=== PATIENT | female | born 1965 | race Caucasian/White ===

== ENCOUNTER → 2016-07-21 | Outpatient (CLI) | payer BC | LOC: RAD 15:18 | PROVIDERS: ATTEND Family Medicine | DX: J45.909 Unspecified asthma, uncomplicated (principal) | CPT/HCPCS: 71020 ==

== ENCOUNTER → 2016-08-26 | Outpatient (CLI) | payer BC ==
[2016-08-26 11:12] LABS: ABSOLUTE EOSINOPHILS # (AUTO) 0.2 10^3/uL (0.0-0.6); ABSOLUTE LYMPHOCYTES (AUTO) 1.8 10^3/uL (0.5-4.7); ABSOLUTE MONOCYTES (AUTO) 0.3 10^3/uL (0.1-1.4); ABSOLUTE NEUT (AUTO) 5.1 10^3/uL (1.7-8.2); BASOPHILS % (AUTO) 0.4 % (0-2); EOSINOPHILS % (AUTO) 2.8 % (0-6); HEMATOCRIT 40.7 % (36.0-47.0); HEMOGLOBIN 13.9 g/dL (12.0-15.5); LYMPHOCYTES % (AUTO) 23.9 % (13-45); MEAN CORPUSCULAR HEMOGLOBIN 29.9 pg (27.0-33.4); MEAN CORPUSCULAR HGB CONC 34.3 g/dL (32.0-36.0); MEAN CORPUSCULAR VOLUME 87 fl (80-97); MONOCYTES % (AUTO) 4.1 % (3-13); RED BLOOD COUNT 4.67 10^6/uL (3.72-5.28); RED CELL DISTRIBUTION WIDTH 13.3 % (11.5-14.0); SEGMENTED NEUTROPHILS % (AUTO) 68.8 % (42-78); WHITE BLOOD COUNT 7.4 10^3/uL (4.0-10.5)
== END ==
LOC: OD 09:35
PROVIDERS: ATTEND Internal Medicine Pulmonary Disease
DX: J45.41 Moderate persistent asthma with (acute) exacerbation (principal)
CPT/HCPCS: 36415; 82785; 85025

== ENCOUNTER → 2017-01-21 | Outpatient (CLI) | payer BC ==
--- NOTE | 2017-01-21 09:46 | RADIOLOGY REPORT (SQ) ---
EXAM DESCRIPTION: CHEST PA/LATERAL COMPLETED DATE/TIME: 01/21/2017 9:15 am REASON FOR STUDY: PNEUMONIA; CHEST CONGESTION; WHEEZING COMPARISON: Two-view chest 07/21/2016 EXAM PARAMETERS: NUMBER OF VIEWS: two views TECHNIQUE: Digital Frontal and Lateral radiographic views of the chest acquired. RADIATION DOSE: NA LIMITATIONS: none FINDINGS: LUNGS AND PLEURA: No opacities, masses or pneumothorax. No pleural effusion. MEDIASTINUM AND HILAR STRUCTURES: No masses or contour abnormalities. HEART AND VASCULAR STRUCTURES: Heart normal size. No evidence for failure. BONES: No acute findings. HARDWARE: Lower cervical fusion OTHER: No other significant finding. IMPRESSION: NO SIGNIFICANT RADIOGRAPHIC FINDING IN THE CHEST. TECHNICAL DOCUMENTATION: JOB ID: [id number] [employer]- All Rights Reserved
== END ==
LOC: OD 07:40
PROVIDERS: ATTEND Student in an Organized Health Care Education/Training Program
DX: J18.9 Pneumonia, unspecified organism (principal)
CPT/HCPCS: 71020

== ENCOUNTER 2017-10-30 16:40 | Emergency (ER) | payer OTHER, BC ==
[2017-10-30] MEDS ORDERED: ASPIRIN 81 MG TABLET, CHEWABLE PO ONE (17:16)
[2017-10-30] MEDS ORDERED: METOCLOPRAMIDE HCL ORAL SOLN 10 MG/10 ML UDCUP PO ONE (17:16)
[2017-10-30] MEDS ORDERED: LIDOCAINE 2% VISCOUS SOLN 20 ML UDCUP PO ONE (17:16)
[2017-10-30] MEDS ORDERED: MAG HYDROX/AL HYDROX/SIMETH SUSP 30 ML UDCUP PO ONE (17:16)
--- NOTE | 2017-10-30 17:18 | ER Document Report ---
ED Medical Screen (RME) - General Chief Complaint: Abdominal Pain Stated Complaint: ABDOMINAL PAIN Time Seen by Provider: 10/30/17 17:09 Notes: 52-year-old female presents emergency department complaining of sharp burning epigastric pain that radiates around to her back and bilateral flanks this been going on for the past 1-2 days and is worsened with food. Admits nausea, denies vomiting or diarrhea. Admits fever earlier this morning but states it has since resolved. Denies any history of biliary pathology. TRAVEL OUTSIDE OF THE [place] IN LAST 30 DAYS: No - Related Data Allergies/Adverse Reactions: oxycodone Allergy (Verified 10/30/17 17:14) Past Medical History - General Information source: Patient - Social History Cigarette use (# per day): No Chew tobacco use (# tins/day): No Frequency of alcohol use: Social Drug Abuse: None Review of Systems - Review of Systems Constitutional: See HPI, Fever EENT: No symptoms reported Cardiovascular: No symptoms reported Gastrointestinal: See HPI, Abdominal pain, Nausea. denies: Diarrhea, Vomiting Physical Exam - Vital signs Vitals: Temp Pulse Resp BP Pulse Ox 98.4 F 96 20 147/79 H 98 10/30/17 16:54 10/30/17 16:54 10/30/17 16:54 10/30/17 16:54 10/30/17 16:54 Interpretation: Hypertensive - Notes Notes: General-appears uncomfortable HEENT-normocephalic atraumatic Respiratory-no respiratory distress Abdomen -epigastric tenderness to palpation with small amount of guarding Course - Vital Signs Vital signs: Temp Pulse Resp BP Pulse Ox 98.4 F 96 20 147/79 H 98 10/30/17 16:54 10/30/17 16:54 10/30/17 16:54 10/30/17 16:54 10/30/17 16:54
--- NOTE | 2017-10-30 18:15 | RADIOLOGY REPORT (SQ) ---
EXAM DESCRIPTION: CHEST SINGLE VIEW COMPLETED DATE/TIME: 10/30/2017 6:04 pm REASON FOR STUDY: epigastric abd pain, radiating to back COMPARISON: 2017. NUMBER OF VIEWS: One view. TECHNIQUE: Single frontal radiographic view of the chest acquired. LIMITATIONS: None. FINDINGS: LUNGS AND PLEURA: No opacities, masses or pneumothorax. No pleural effusion. MEDIASTINUM AND HILAR STRUCTURES: No masses. Contour normal. HEART AND VASCULAR STRUCTURES: Heart normal in size. Normal vasculature. BONES: No acute findings. HARDWARE: None in the chest. OTHER: No other significant finding. IMPRESSION: NO SIGNIFICANT RADIOGRAPHIC FINDING IN THE CHEST. TECHNICAL DOCUMENTATION: JOB ID: [id number] [employer]- All Rights Reserved Reading location - IP/workstation name: [email or web address]
[2017-10-30 18:17] LABS: ABSOLUTE BASOPHILS # (AUTO) 0.1 10^3/uL (0.0-0.2); ABSOLUTE EOSINOPHILS # (AUTO) 0.1 10^3/uL (0.0-0.6); ABSOLUTE LYMPHOCYTES (AUTO) 1.2 10^3/uL (0.5-4.7); ABSOLUTE MONOCYTES (AUTO) 1.2 10^3/uL (0.1-1.4); ABSOLUTE NEUT (AUTO) 12.5 10^3/uL (1.7-8.2); BASOPHILS % (AUTO) 0.4 % (0-2); EOSINOPHILS % (AUTO) 0.4 % (0-6); HEMATOCRIT 45.1 % (36.0-47.0); HEMOGLOBIN 15.3 g/dL (12.0-15.5); LYMPHOCYTES % (AUTO) 7.7 % (13-45); MEAN CORPUSCULAR HEMOGLOBIN 29.8 pg (27.0-33.4); MEAN CORPUSCULAR HGB CONC 33.9 g/dL (32.0-36.0); MEAN CORPUSCULAR VOLUME 88 fl (80-97); MONOCYTES % (AUTO) 8.1 % (3-13); PLATELET COUNT 314 10^3/uL (150-450); RED BLOOD COUNT 5.13 10^6/uL (3.72-5.28); RED CELL DISTRIBUTION WIDTH 13.7 % (11.5-14.0); SEGMENTED NEUTROPHILS % (AUTO) 83.4 % (42-78); TOTAL CELLS COUNTED % (AUTO) 100 %
[2017-10-30 18:33] LABS: ALANINE AMINOTRANSFERASE 380 U/L (9-52); ALBUMIN 4.5 g/dL (3.5-5.0); ALKALINE PHOSPHATASE 152 U/L (38-126); ANION GAP 16 (5-19); ASPARTATE AMINO TRANSFERASE 284 U/L (14-36); BILIRUBIN,DIRECT 4.2 mg/dL (0.0-0.4); BILIRUBIN,TOTAL 6.1 mg/dL (0.2-1.3); BLOOD UREA NITROGEN 10 mg/dL (7-20); CALCIUM 10.5 mg/dL (8.4-10.2); CARBON DIOXIDE 25 mmol/L (22-30); CHLORIDE 99 mmol/L (98-107); CREATINE KINASE 35 U/L (30-135); GLUCOSE 130 mg/dL (75-110); LIPASE 259.4 U/L (23-300); POTASSIUM 4.5 mmol/L (3.6-5.0); SODIUM 139.9 mmol/L (137-145); TOTAL PROTEIN 7.6 g/dL (6.3-8.2)
[2017-10-30 18:46] LABS: CREATINE KINASE MB 0.28 ng/mL (<4.55)
[2017-10-30 18:51] LABS: TROPONIN I < 0.012 ng/mL
[2017-10-30] MEDS ORDERED: NORMAL SALINE 1000 ML 1,000 ML IV ONE (21:00)
--- NOTE | 2017-10-30 21:00 | ER Document Report ---
ED General - General Chief Complaint: Abdominal Pain Stated Complaint: ABDOMINAL PAIN Time Seen by Provider: 10/30/17 17:09 Notes: Patient is a 52-year-old female without chronic medical problems who presents with 3 days of right upper quadrant and epigastric abdominal pain. The patient reports that it is a dull, aching, constant pain that is worsened by any attempt to eating. Nothing improves her symptoms. She states that she often feels very full and bloated. She notes associated nausea but no vomiting. She continues to have regular bowel movements, no diarrhea. She has not had any fever or constitutional symptoms. She denies any history of similar symptoms in the past. She denies any regular use of alcohol stating that she maybe has 1 -2 alcoholic beverages per month at most, denies any use of Tylenol although does note that she has been taking [place] that was prescribed by her doctor. She is clear to state however though she is not even taking it at the frequency that is prescribed. She denies any history of abdominal surgeries. She has not seen a primary care doctor regarding today's concerns. TRAVEL OUTSIDE OF THE [place] IN LAST 30 DAYS: No - Related Data Allergies/Adverse Reactions: oxycodone Allergy (Verified 10/30/17 17:14) Past Medical History - General Information source: Patient - Social History Smoking Status: Never Smoker Cigarette use (# per day): No Chew tobacco use (# tins/day): No Frequency of alcohol use: Social Drug Abuse: None Lives with: Family Family History: Reviewed & Not Pertinent Patient has suicidal ideation: No Patient has homicidal ideation: No Pulmonary Medical History: Reports: Hx Asthma Renal/ Medical History: Denies: Hx Peritoneal Dialysis Past Surgical History: Reports: Hx Orthopedic Surgery - right foot Review of Systems - Review of Systems Notes: Constitutional: Negative for fever. HENT: Negative for sore throat. Eyes: Negative for visual changes. Cardiovascular: Negative for chest pain. Respiratory: Negative for shortness of breath. Gastrointestinal: Positive for abdominal pain and nausea Genitourinary: Negative for dysuria. Musculoskeletal: Negative for back pain. Skin: Negative for rash. Neurological: Negative for headaches, weakness or numbness. 10 point ROS negative except as marked above and in HPI. Physical Exam - Vital signs Vitals: Temp Pulse Resp BP Pulse Ox 98.4 F 96 20 147/79 H 98 10/30/17 16:54 10/30/17 16:54 10/30/17 16:54 10/30/17 16:54 10/30/17 16:54 Interpretation: Hypertensive Notes: PHYSICAL EXAMINATION: GENERAL: Well-appearing, well-nourished and in no acute distress. HEAD: Atraumatic, normocephalic. EYES: Pupils equal round and reactive to light, extraocular movements intact, sclera anicteric, conjunctiva are normal. ENT: nares patent, oropharynx clear without exudates. Moist mucous membranes. NECK: Normal range of motion, supple without lymphadenopathy LUNGS: Breath sounds clear to auscultation bilaterally and equal. No wheezes rales or rhonchi. HEART: Regular rate and rhythm without murmurs ABDOMEN: Soft, focal tenderness to the right upper quadrant and epigastrium but no other localized areas of tenderness, normoactive bowel sounds. No guarding, no rebound. No masses appreciated. EXTREMITIES: Normal range of motion, no pitting or edema. No cyanosis. NEUROLOGICAL: No focal neurological deficits. Moves all extremities spontaneously and on command. PSYCH: Normal mood, normal affect. SKIN: Warm, Dry, normal turgor, mild icterus Course - Re-evaluation Re-evalutation: 10/30/17 20:59 Presentation of 3 days of progressively worsening upper abdominal pain found to have a profound transaminitis with associated hyperbilirubinemia on laboratories consistent with likely choledocholithiasis. Ultrasound does show gallbladder distention as well as stones. On abdominal examination the patient is a focal right upper quadrant and epigastric abdominal tenderness but no areas of rebound or guarding. Her vitals are within acceptable limits. We do not have the capacity to do ERCP at this hospital and she will require transfer to [facility] for this procedure. 10/30/17 22:03 Right upper quadrant ultrasound does not show any evidence of gallstones or gallbladder wall thickening. Normal common bile duct caliber. This goes strongly against a diagnosis of choledocholithiasis, a biliary stricture would still be in the differential although again this is unusual the context of normal common bile duct caliber. The patient denies any alcohol use, any risky sexual practices, any history of IV drug use, any history of hepatitis. She likewise denies any acetaminophen use. I do not have any good expansion for why she has such profound transaminitis with associated hyperbilirubinemia with associated upper abdominal pain. I have therefore discussed this case with Dr. Bonds at [facility] who has accepted the patient for transfer for GI consultation and consideration of an ERCP. 10/31/17 00:37 Continue to weigh transport. Patient was having increasing epigastric and right upper quadrant abdominal pain is now requesting pain medication. - Vital Signs Vital signs: Temp Pulse Resp BP Pulse Ox 99.0 F 96 22 H 134/75 H 98 10/30/17 23:31 10/30/17 16:54 10/30/17 23:31 10/30/17 23:31 10/30/17 23:31 - Laboratory Result Diagrams: 10/30/17 17:50 10/30/17 17:50 Laboratory results interpreted by me: 10/30/17 10/30/17 10/30/17 17:50 17:50 17:50 WBC 15.0 H Seg Neutrophils % 83.4 H Lymphocytes % 7.7 L Absolute Neutrophils 12.5 H Glucose 130 H Calcium 10.5 H Total Bilirubin 6.1 H Direct Bilirubin 4.2 H AST 284 H ALT 380 H Alkaline Phosphatase 152 H Acetaminophen < 10 L - Diagnostic Test Radiology reviewed: Reports reviewed Discharge - Discharge Clinical Impression: Acute hepatitis Liver failure, acute Qualifiers: Hepatic coma status: without hepatic coma Qualified Code(s): K72.00 - Acute and subacute hepatic failure without coma Condition: Fair Disposition: [facility] [place] Referrals: JEFFERY BEAL DO [Primary Care Provider] - Follow up as needed
--- NOTE | 2017-10-30 21:03 | RADIOLOGY REPORT (SQ) ---
EXAM DESCRIPTION: U/S ABDOMEN LIMITED W/O DOP COMPLETED DATE/TIME: 10/30/2017 8:50 pm REASON FOR STUDY: upper abdominal pain, abnormal lfts COMPARISON: None. TECHNIQUE: Dynamic and static grayscale images acquired of the abdomen and recorded on PACS. Onuro dionte selected color Doppler and spectral images recorded. LIMITATIONS: None. FINDINGS: PANCREAS: No masses. No peripancreatic edema or fluid collections. LIVER: Echotexture is coarse with increased echogenicity consistent with fatty infiltration. LIVER VASCULATURE: Normal directional flow of the main portal vein and hepatic veins. GALLBLADDER: No stones. Normal wall thickness. No pericholecystic fluid. ULTRASOUND-DETECTED VALLE'S SIGN: Negative. INTRAHEPATIC DUCTS AND COMMON DUCT: CBD and intrahepatic ducts normal caliber. No filling defects. INFERIOR VENA CAVA: Normal flow. AORTA: No aneurysm. RIGHT KIDNEY: Normal size. Normal echogenicity. No solid or suspicious masses. No hydronephrosis. No calcifications. PERITONEAL AND RIGHT PLEURAL SPACE: No ascites or effusions. OTHER: No other significant finding. IMPRESSION: FATTY INFILTRATION OF THE LIVER. OTHERWISE NORMAL RIGHT UPPER QUADRANT ULTRASOUND. TECHNICAL DOCUMENTATION: JOB ID: [id number] [employer]- All Rights Reserved Reading location - IP/workstation name: [email or web address]
[2017-10-30 22:25] LABS: ACETAMINOPHEN < 10 ug/mL (10-30)
[2017-10-30] MEDS ORDERED: MORPHINE SULFATE 10 MG/ML INJ IV PRN (23:23)
[2017-10-30] MEDS ORDERED: ONDANSETRON HCL INJ/PF 4 MG/2 ML SDV IV ONE (23:23)
[2017-10-31] MEDS ORDERED: HYDROMORPHONE HCL INJ/PF 2 MG/ML AMPULE IV PRN (00:02)
[2017-10-31 01:20] VITALS: BP 118/72
--- NOTE | 2017-10-31 09:26 | EKG REPORT ---
SEVERITY:- ABNORMAL ECG - SINUS RHYTHM LEFT VENTRICULAR HYPERTROPHY : Confirmed by: Femi Sheriff 31-Oct-2017 09:25:58
[2017-11-01 13:38] LABS: HEPATITIS A AB IGM Negative (Negative); HEPATITIS B CORE AB IGM Negative (Negative); HEPATITS B SURFACE ANTIGEN Negative (Negative)
[2017-11-01 13:59] LABS: HEPATITIS C VIRUS ANTIBODY <0.1 s/co ratio (0.0-0.9)
== END 2017-10-31 01:15 | disposition short-term general hospital (02) ==
LOC: ER 16:40
DX: K72.00 Acute and subacute hepatic failure without coma (principal); R74.0 Nonspecific elevation of levels of transaminase and lactic acid dehydrogenase [LDH]; E80.6 Other disorders of bilirubin metabolism; R10.11 Right upper quadrant pain; R10.13 Epigastric pain; R11.0 Nausea; J45.909 Unspecified asthma, uncomplicated
CPT/HCPCS: 93005; 99285; 36415; 82553; 82550; 83690; 80307; 85025; 80053; 84484; 80074; 71045; 76705; 93010; J3490; J1170; J2405; J7030

== ENCOUNTER 2018-05-09 09:34 | Emergency (ER) | payer OTHER, BC ==
[2018-05-09] MEDS ORDERED: IPRATROPIUM/ALBUTEROL 0.5-2.5 MG/3 ML AMPUL NEB ONE (09:47)
[2018-05-09] MEDS ORDERED: METHYLPREDNISOLONE INJ 125 MG/2 ML SDV IV ONE (09:47)
[2018-05-09] MEDS ORDERED: NORMAL SALINE 1000 ML 1,000 ML IV PRN (09:49)
--- NOTE | 2018-05-09 09:51 | ER Document Report ---
ED Medical Screen (RME) - General Chief Complaint: Breathing Difficulty Stated Complaint: DIFFICULTY BREATHING Time Seen by Provider: 05/09/18 09:43 Notes: 52 years old female with history of asthma presents today with exacerbation of wheezing. Though she has been taking Ventolin, Symbicort, Singulair, prednisone 20 mg twice a day. No fever chills or other constitutional symptoms. On examination-diffuse bilaterally expiratory wheezing TRAVEL OUTSIDE OF THE [place] IN LAST 30 DAYS: No - Related Data Allergies/Adverse Reactions: oxycodone Allergy (Verified 05/09/18 09:34) Past Medical History - Social History Chew tobacco use (# tins/day): No Frequency of alcohol use: None Drug Abuse: None Pulmonary Medical History: Reports: Hx Asthma Renal/ Medical History: Denies: Hx Peritoneal Dialysis Past Surgical History: Reports: Hx Orthopedic Surgery - right foot Physical Exam - Vital signs Vitals: Temp Pulse Resp BP Pulse Ox 98.4 F 75 18 139/88 H 96 05/09/18 09:38 05/09/18 09:38 05/09/18 09:38 05/09/18 09:38 05/09/18 09:38 Course - Vital Signs Vital signs: Temp Pulse Resp BP Pulse Ox 98.4 F 75 18 139/88 H 96 05/09/18 09:38 05/09/18 09:38 05/09/18 09:38 05/09/18 09:38 05/09/18 09:38 Doctor's Discharge - Discharge Referrals: JEFFERY BEAL DO [Primary Care Provider] - Follow up as needed
--- NOTE | 2018-05-09 10:21 | ER Document Report ---
ED General - General Chief Complaint: Breathing Difficulty Stated Complaint: DIFFICULTY BREATHING Time Seen by Provider: 05/09/18 09:43 TRAVEL OUTSIDE OF THE [place] IN LAST 30 DAYS: No - HPI Notes: Patient is a 52-year-old female with a history of asthma and chronic joint pains of a flareup of her asthma over the last 4 days. Patient states that she has had a dry cough and associated wheezing. Patient states that she has had a history of asthma flareups in the past and states that this is the exact same as previous flareups. Pt states that most of her issues are with coughing fits , otherwise she feels well. She was evaluated by her primary care doctor 3 days ago and was placed on steroids as well as an antibiotic which she has been taking. She has been using her inhalers at home as well. She has no other concerns or complaints. She has been eating and drinking without any difficulties. She is urinating normally. Denies any prolonged immobilization, distance travel, recent surgery/trauma, personal cancer history, hormone use, smoking, or previous DVT/PE. Denies any headache, fever, URI, sore throat, chest pain, palpitations, syncope, shortness of breath, abdominal pain, nausea/ vomiting/diarrhea, urinary retention, dysuria, hematuria, or rash. - Related Data Allergies/Adverse Reactions: oxycodone Allergy (Verified 05/09/18 09:34) Past Medical History - Social History Smoking Status: Never Smoker Chew tobacco use (# tins/day): No Frequency of alcohol use: None Drug Abuse: None Family History: Reviewed & Not Pertinent Patient has suicidal ideation: No Patient has homicidal ideation: No Pulmonary Medical History: Reports: Hx Asthma Renal/ Medical History: Denies: Hx Peritoneal Dialysis Past Surgical History: Reports: Hx Orthopedic Surgery - right foot Review of Systems - Review of Systems -: Yes All other systems reviewed and negative Physical Exam - Vital signs Vitals: Temp Pulse Resp BP Pulse Ox 98.4 F 75 18 139/88 H 96 05/09/18 09:38 05/09/18 09:38 05/09/18 09:38 05/09/18 09:38 05/09/18 09:38 - Notes Notes: PHYSICAL EXAMINATION: GENERAL: Well-appearing, well-nourished and in no acute distress. A&Ox4. Answers questions appropriately. Speaking in full sentences. HEAD: Atraumatic, normocephalic. EYES: Pupils equal round and reactive to light, extraocular movements intact, sclera anicteric, conjunctiva are normal. ENT: Nares patent and without discharge. oropharynx clear without exudates. No tonsilar hypertrophy or erythema. Moist mucous membranes. No sinus tenderness. NECK: Normal range of motion, supple without lymphadenopathy. No rigidity/ meningismus. LUNGS: Scant expiratory wheezes noted. Dry harsh cough noted. No retractions. HEART: Regular rate and rhythm without murmurs, rubs, gallops. ABDOMEN: Soft, nontender, nondistended abdomen. No guarding, no rebound. No masses appreciated. Normal bowel sounds present. No CVA tenderness bilaterally. Musculoskeletal: FROM to passive/active. Strength 5+/5. Elizabet neg b/l. No LE asymmetry. Extremities: No cyanosis, clubbing, or edema b/l. Peripheral pulses 2+. Capillary refill less than 3 seconds. NEUROLOGICAL: Cranial nerves grossly intact. Normal speech, normal gait. Normal sensory, motor exams PSYCH: Normal mood, normal affect. SKIN: Warm, Dry, normal turgor, no rashes or lesions noted. Course - Re-evaluation Re-evalutation: 05/09/18 12:54 Patient is an afebrile, well-hydrated 52-year-old female who presents to the ED with acute asthma exacerbation vs URI. Vitals are acceptable without any significant tachycardia, tachypnea, or hypoxia. Pt has not had any episodes of hypoxemia while in the ED. PE is otherwise unremarkable. Patient is nontoxic- appearing and is tolerating p.o. without any difficulties. Pt is currently asymptomatic. EKG, D-dimer, and chest x-ray are all unremarkable for any acute pathology. Patient does not have any chest pain, dyspnea, or shortness of breath at this time. She was given duoneb, solumedrol, magnesium IV. Lungs are CTAB at this time. She has had asthma exacerbations like this in the past. Patient's presentation and symptomatology creates low suspicion for ACS, PE, pneumothorax, pericarditis, dissection, respiratory compromise, severe dehydration, sepsis, meningitis, or other systemic emergent condition at this time. Patient is aware that this condition can change from initial presentation and she needs to monitor symptoms closely and seek medical attention for any acute changes. Pt is feeling better and would like to go home. Recommend conservative measures for symptoms. Recheck with your PCM in 2 -3 days. Consider consult with pulmonology. Return to the ED with any worsening /concerning symptoms otherwise as reviewed in discharge. Patient is in agreement. - Vital Signs Vital signs: Temp Pulse Resp BP Pulse Ox 98.4 F 75 18 139/88 H 96 05/09/18 09:38 05/09/18 09:38 05/09/18 10:15 05/09/18 09:38 05/09/18 09:38 Discharge - Discharge Clinical Impression: Acute bronchitis Qualifiers: Bronchitis organism: unspecified organism Qualified Code(s): J20.9 - Acute bronchitis, unspecified Acute asthma exacerbation Qualifiers: Asthma severity: mild Asthma persistence: intermittent Qualified Code(s): J45.21 - Mild intermittent asthma with (acute) exacerbation Condition: Stable Disposition: HOME, SELF-CARE Additional Instructions: Maintain adequate fluid intake Take meds as directed tylenol/ibuprofen as needed over the counter cold medication as needed for symptoms Humidified air may help Wash your hands regularly Wear a mask when coughing F/u: with your PCM in 3-5 days for a recheck Return to the ED with any fever, worsening pain, chest pain, palpitations, syncope, worsening AUGUSTINE, neck pain/stiffness, shortness of breath, wheezing, drooling, trouble swallowing/breathing, abdominal pain, n/v/d, rash, or worsening/concerning symptoms otherwise. Prescriptions: Benzonatate [Tessalon Perle 100 mg Capsule] 100 mg PO Q8HP PRN #15 cap PRN Reason: Prednisone 20 mg PO ASDIR #18 tablet Forms: Elevated Blood Pressure Referrals: SALVADOR LOVE MD [ACTIVE STAFF] - Follow up as needed JEFFERY BEAL DO [Primary Care Provider] - 05/11/18
--- NOTE | 2018-05-09 11:00 | RADIOLOGY REPORT (SQ) ---
EXAM DESCRIPTION: CHEST SINGLE VIEW COMPLETED DATE/TIME: 05/09/2018 10:01 am REASON FOR STUDY: cough COMPARISON: 10/30/2017. EXAM PARAMETERS: NUMBER OF VIEWS: One view. TECHNIQUE: Single frontal radiographic view of the chest acquired. RADIATION DOSE: NA LIMITATIONS: None. FINDINGS: LUNGS AND PLEURA: No opacities, masses or pneumothorax. No pleural effusion. MEDIASTINUM AND HILAR STRUCTURES: No masses. Contour normal. HEART AND VASCULAR STRUCTURES: Heart normal in size. Normal vasculature. BONES: No acute findings. HARDWARE: None in the chest appeared hardware in the cervical spine. OTHER: No other significant finding. IMPRESSION: NO ACUTE RADIOGRAPHIC FINDING IN THE CHEST. TECHNICAL DOCUMENTATION: JOB ID: [id number] [employer]- All Rights Reserved Reading location - IP/workstation name: [email or web address]
[2018-05-09] MEDS: MAGNESIUM SULFATE/D5W 1 GM/100 ML RTUPB IV SCH ×2 (11:37→12:50)
[2018-05-09] MEDS: ALBUTEROL SULFATE 0.083% NEB 2.5 MG/3 ML AMPUL NEB SCH ×2 (11:43→12:54)
[2018-05-09] MEDS ORDERED: ALBUTEROL SULFATE 0.083% NEB 2.5 MG/3 ML AMPUL NEB ONE (12:54)
[2018-05-09] MEDS ORDERED: BENZONATATE 100 MG CAPSULE PO ONE (12:58)
[2018-05-09 13:56] VITALS: BP 123/60
--- NOTE | 2018-05-11 08:18 | EKG REPORT ---
SEVERITY:- ABNORMAL ECG - SINUS RHYTHM LEFT VENTRICULAR HYPERTROPHY : Confirmed by: Radha Del Real MD 11-May-2018 08:17:47
== END 2018-05-09 14:43 | disposition home or self-care (01) ==
LOC: ER 09:34
DX: J20.9 Acute bronchitis, unspecified (principal); J45.21 Mild intermittent asthma with (acute) exacerbation; R05 Cough; Z88.5 Allergy status to narcotic agent
CPT/HCPCS: 93005; 94640 ×2; 99285; 96361; 96375; 96365; 36415; 85379; 71045; 93010; J2930; J3475; J7030; J7620

== ENCOUNTER 2018-06-23 09:30 | Day surgery (SDC) | payer OTHER, BC ==
[2018-06-16 11:16] LABS: HEMATOCRIT 42.4 % (36.0-47.0); HEMOGLOBIN 14.8 g/dL (12.0-15.5); MEAN CORPUSCULAR HEMOGLOBIN 30.6 pg (27.0-33.4); MEAN CORPUSCULAR HGB CONC 34.9 g/dL (32.0-36.0); MEAN CORPUSCULAR VOLUME 88 fl (80-97); PLATELET COUNT 328 10^3/uL (150-450); RED BLOOD COUNT 4.84 10^6/uL (3.72-5.28); RED CELL DISTRIBUTION WIDTH 13.3 % (11.5-14.0); WHITE BLOOD COUNT 8.4 10^3/uL (4.0-10.5)
[2018-06-16 11:25] LABS: APPEARANCE,URINE CLOUDY; BILIRUBIN,URINE NEGATIVE (NEGATIVE); COLOR,URINE YELLOW; GLUCOSE, URINE >=500 mg/dL (NEGATIVE); KETONES,URINE NEGATIVE (NEGATIVE); LEUKOCYTE ESTERASE,URINE NEGATIVE (NEGATIVE); NITRITE,URINE NEGATIVE (NEGATIVE); PROTEIN,URINE NEGATIVE (NEGATIVE); URINE SPECIFIC GRAVITY 1.021; UROBILINOGEN,URINE NEGATIVE mg/dL (<2.0)
[2018-06-16 11:41] LABS: ANION GAP 9 (5-19); BLOOD UREA NITROGEN 15 mg/dL (7-20); CALCIUM 9.6 mg/dL (8.4-10.2); CARBON DIOXIDE 27 mmol/L (22-30); CHLORIDE 106 mmol/L (98-107); GLUCOSE 115 mg/dL (75-110); POTASSIUM 4.2 mmol/L (3.6-5.0); SODIUM 141.8 mmol/L (137-145)
--- NOTE | 2018-06-16 11:46 | EKG REPORT ---
SEVERITY:- NORMAL ECG - SINUS RHYTHM : Confirmed by: Femi Sheriff 16-Jun-2018 11:45:39
--- NOTE | 2018-06-16 13:07 | RADIOLOGY REPORT (SQ) ---
EXAM DESCRIPTION: CHEST PA/LATERAL COMPLETED DATE/TIME: 06/16/2018 10:41 am REASON FOR STUDY: PRE-OP COMPARISON: None. EXAM PARAMETERS: NUMBER OF VIEWS: two views TECHNIQUE: Digital Frontal and Lateral radiographic views of the chest acquired. RADIATION DOSE: NA LIMITATIONS: none FINDINGS: LUNGS AND PLEURA: No opacities, masses or pneumothorax. No pleural effusion. MEDIASTINUM AND HILAR STRUCTURES: No masses or contour abnormalities. HEART AND VASCULAR STRUCTURES: Heart normal size. No evidence for failure. BONES: No acute findings. HARDWARE: None in the chest. OTHER: No other significant finding. IMPRESSION: NO SIGNIFICANT RADIOGRAPHIC FINDING IN THE CHEST. TECHNICAL DOCUMENTATION: JOB ID: [id number] [employer]- All Rights Reserved Reading location - IP/workstation name: [email or web address]
[~2018-06-23 09:30] MED LIST: CEFAZOLIN 2 GM/D5W RTU 2 GM/50 ML RTUPB IV ONE; CEFAZOLIN 2 GM/D5W RTU 2 GM/50 ML RTUPB IV PRN; LACTATED RINGERS 1000 ML IV PRN; LIDOCAINE 0.5% INJ-PF (5 MG/ML) 50 ML SDV SUBCUT PRN
[2018-06-23] MEDS ORDERED: PROPOFOL INJ 200 MG/20 ML VIAL IV ONE (10:31)
[2018-06-23] MEDS ORDERED: MIDAZOLAM 2 MG/2 ML INJ ONE (10:31)
[2018-06-23] MEDS ORDERED: FENTANYL CITRATE INJ/PF 100 MCG/2 ML AMPUL ONE (10:31)
[2018-06-23] MEDS ORDERED: BUPIVACAINE HCL 0.5 % INJ/PF 30 ML SDV ONE (10:54)
[2018-06-23] MEDS ORDERED: HYDROMORPHONE HCL INJ/PF 2 MG/ML AMPULE ONE (12:23)
[2018-06-23] MEDS ORDERED: ACETAMINOPHEN 1,000 MG/100 ML RTUPB IV ONE (12:23)
[2018-06-23] MEDS ORDERED: ONDANSETRON HCL INJ/PF 4 MG/2 ML SDV ONE (12:23)
[2018-06-23] MEDS ORDERED: PROMETHAZINE HCL INJ 25 MG/1 ML VIAL ONE (12:49)
[2018-06-23] MEDS ORDERED: LIDOCAINE 1%/EPINEPHRINE INJ 20 ML VIAL ONE (12:50)
[2018-06-23] MEDS ORDERED: MEPERIDINE HCL/PF INJ 25 MG/1 ML DISP.SYRIN IV PRN (13:23)
[2018-06-23] MEDS ORDERED: MORPHINE SULFATE 10 MG/ML INJ IV PRN (13:23)
[2018-06-23] MEDS ORDERED: FENTANYL CITRATE INJ/PF 100 MCG/2 ML AMPUL IV PRN ×3 (13:23)
[2018-06-23] MEDS ORDERED: PROMETHAZINE HCL INJ 25 MG/1 ML VIAL IV PRN ×2 (13:23)
[2018-06-23] MEDS ORDERED: DIPHENHYDRAMINE HCL 50 MG/ML VIAL IV PRN (13:23)
[2018-06-23] MEDS ORDERED: DEXAMETHASONE SOD PHOSPHATE INJ 4 MG/1 ML VIAL ONE (13:32)
[2018-06-23] MEDS ORDERED: KETOROLAC TROMETHAMINE 60 MG/2 ML SDV ONE (13:32)
--- NOTE | 2018-06-23 14:07 | Operative Report ---
Operative Report DATE OF SURGERY: 06/23/18 PREOPERATIVE DIAGNOSIS: Right knee medial plica and chondromalacia OPERATION: Right knee medial plica excision and chondroplasty of patella and lateral tibial plateau SURGEON: MIC CH ANESTHESIA: GA TISSUE REMOVED OR ALTERED: None COMPLICATIONS: None ESTIMATED BLOOD LOSS: Less than 20mL INTRAOPERATIVE FINDINGS: As above PROCEDURE: Patient was brought to the operating room and successfully induced and intubated in a the supine position. Once the tube was secured the right lower extremity thigh tourniquet was applied and the left lower extremity was prepped and draped in a normal surgical fashion. Timeout was done identifying the left knee has a correct site. The extremity was held elevated for a couple minutes and then tourniquet was inflated at 300 mmHg 0.5% of Marcaine was injected into the anticipated portal sites. 11 blade was used to establish the anterolateral portal. Scope was introduced and the capsule was distended with sterile saline solution. Under direct visualization the anteromedial portal sites was established first by applying a spinal needle and then established with the 11 blade. Probe was introduced and a diagnostic scope was done. Diagnostic arthroscopy showed the patient did have a little plica and as well as some grade II chondromalacia of the medial facet of the patella with just some grade 1 and 2 fissuring of the trochlea. Lateral medial meniscus were intact ACL PCL were intact. Patient had some grade 2-3 changes focally on the lateral tibial plateau. I first proceeded to to resection of the plica and part of the fat pad that was involved in the area. I was able then to use a shaver to then do with abrasive chondroplasty to debride the loose cartilage on the patella and trochlea. I then placed the leg in a figure 4 and that the same abrasion chondroplasty of the lateral tibial plateau. I then then proceeded to make sure that the medial plica was was it was thought and excised and placed in the range of motion showing no impingement or tissue over the medial femoral condyle. Also satisfied with excision of the plica and my abrasion chondroplasty then I proceeded to remove the fluidfrom the knee and closed multiple sites with 3-0 nylon. Xeroform 4 x 4 dressing was applied followed by' s Sof-Rol and an Alejandro bandage. Tourniquet was let down at 70 minutes and drapes were removed and the patient was extubated and sent to PACU in stable condition
[2018-06-23] MEDS ORDERED: HYDROCODONE/ACETAMINOPHEN 5-325 MG TABLET PO PRN (14:10)
--- NOTE | 2018-06-23 14:10 | Discharge Summary ---
Discharge Summary (SDC) - Discharge Final Diagnosis: Right knee arthroscopy with medial plica excision and chondroplasty Date of Surgery: 06/23/18 Discharge Date: 06/23/18 Condition: Good Treatment or Instructions: Patient instructed to follow up in 10-14 days. Patient instructed to keep dressing dry clean and intact for 4 days and then allowed to remove. At that point patient can shower and apply Band-Aids as needed. Patient can weight-bear as tolerated and do range of motion exercises as tolerated. Crutches for support and safety. Can wean crutches once stable on his feet. Patient instructed to call the office if patient develops fevers chills redness and drainage from the surgical sites. Prescriptions: Hydrocodone/Acetaminophen [[place] 5-325 mg Tablet] 1 tab PO Q6HP PRN #14 tablet PRN Reason: Referrals: JEFFERY BEAL DO [Primary Care Provider] - Discharge Diet: As Tolerated Respiratory Treatments at Home: Deep Breathing/Coughing Discharge Activity: No Driving, Keep Legs Elevated, No Lifting/Push/Pulling, Slowly Increase Activity, Walk Frequently Home Care Assistance: None Needed Report the Following to Your Physician Immediately: Shortness of Breath, Nausea , Vomiting, Increase in Pain, Fever over 101 Degrees, Unusual Bleeding, Redness , Swelling, Warmth, Increased Soreness, Drainage-Yellow, Drainage-Cary, Drainage -Green, Drainage-Foul Smelling
[2018-06-23] MEDS ORDERED: HYDROCODONE/ACETAMINOPHEN 5-325 MG TABLET ONE (14:33)
[2018-06-23 18:31] VITALS: BP 122/89
== END 2018-06-23 15:22 | disposition home or self-care (01) ==
LOC: OROUT 09:30
PROVIDERS: ATTEND Orthopaedic Surgery
DX: M67.51 Plica syndrome, right knee (principal); M22.41 Chondromalacia patellae, right knee; M23.91 Unspecified internal derangement of right knee; J45.909 Unspecified asthma, uncomplicated; Z88.5 Allergy status to narcotic agent; Z79.51 Long term (current) use of inhaled steroids; Z79.899 Other long term (current) drug therapy
CPT/HCPCS: 93005; 36415; 85027; 81025; 80048; 81001; 71046; 93010; 29875; J2250; J3490; J1100; J1885; J3010; J2405; J2704; J0690; J0131; 1400; J1170; J2550

== ENCOUNTER → 2018-07-28 | Outpatient (CLI) | payer OTHER ==
--- NOTE | 2018-07-28 08:30 | WOMENS IMAGING REPORT ---
EXAM DESCRIPTION: 3D SCREENING MAMMO BILAT COMPLETED DATE/TIME: 07/28/2018 7:38 am REASON FOR STUDY: ROUTINE BILATERAL SCREENING;Z12.31 Z12.31 ENCNTR SCREEN MAMMOGRAM FOR MALIGNANT N EOPLASM OF ALEXIA COMPARISON: 05/14/2017 and 05/08/2016. TECHNIQUE: Standard craniocaudal and mediolateral oblique views of each breast recorded using digita l acquisition and breast tomosynthesis. LIMITATIONS: None. FINDINGS: No masses, calcifications or architectural distortion. No areas of suspicion. Read with the assistance of CAD. .[facility] - R2 [employer] Version 1.3 .[facility] Imaging - R2 Cenova Version 1.3 .[facility] - R2 Cenova Version 2.4 .[facility] [place] - R2 Cenova Version 2.4 .[facility] - R2 [employer] Production Team Member Version 9.2 IMPRESSION: NORMAL MAMMOGRAM. BIRADS 1. BREAST DENSITY: c. The breasts are heterogeneously dense, which may obscure small masses. BIRAD: 1 NEGATIVE RECOMMENDATION: ROUTINE SCREENING COMMENT: The patient has been notified of the results by letter per SA requirements. Additional no tification policies are in place for contacting patient with suspicious or incomplete findings. Quality ID #[id number]: The [employer] recommends an annual screening mammogram for women aged 40 years or over. This facility utilizes a reminder system to ensure that all patients receive reminder letters, and/or direct phone calls for appointments. This includes reminders for routine scr eening mammograms, diagnostic mammograms, or other Breast Imaging Interventions when appropriate. Th is patient will be placed in the appropriate reminder system. The [employer] (ACR) has developed recommendations for screening MRI of the breast s in certain patient populations, to be used in conjunction with mammography. Breast MRI surveillanc e may be appropriate for women with more than 20% lifetime risk of developing breast cancer as deter mined by genetic testing, significant family history of the disease, or history of mantle radiation f or Hodgkins Disease. ACR Practice Guidelines 2008. DBT Technology DBT is a type of tomographic mammography. With conventional mammography, overlapping breast tissue ma y make lesions difficult to detect, even with good compression. DBT uses an x-ray tube that rotates a round the breast, taking images at different angles. These images are then combined to create thin sl ices of the breast that the radiologist can view as a 3D reconstruction. The [employer] unit can perform full-field digital mammograms (2D imaging); or DBT (3D imaging); or both, in a combination mode that quickly performs both the mammogram and the tomosynthesis scan while the breast is still compressed. PQRS 6045F: Fluoroscopic imaging is not utilized for breast tomosynthesis. TECHNICAL DOCUMENTATION: FINDING NUMBER: (1) ASSESSMENT: (1) JOB ID: [id number] [employer]- All Rights Reserved Reading location - IP/workstation name: [email or web address]
== END ==
LOC: RAD 07:22
PROVIDERS: ATTEND Physician Assistant Medical
DX: Z12.31 Encounter for screening mammogram for malignant neoplasm of breast (principal)
CPT/HCPCS: 77063; 77067

== ENCOUNTER 2018-08-10 15:54 | Observation (INO) | payer OTHER, BC ==
[~2018-08-10 15:54] MED LIST changes: -CEFAZOLIN 2 GM/D5W RTU 2 GM/50 ML RTUPB IV ONE; -CEFAZOLIN 2 GM/D5W RTU 2 GM/50 ML RTUPB IV PRN; +DEXAMETHASONE SOD PHOSPHATE INJ 4 MG/1 ML VIAL ONE; +GLYCOPYRROLATE 1 MG/5 ML SYRINGE ONE; -LACTATED RINGERS 1000 ML IV PRN; -LIDOCAINE 0.5% INJ-PF (5 MG/ML) 50 ML SDV SUBCUT PRN; +LIDOCAINE 2% INJ-PF (20 MG/ML) 2 ML AMPUL ONE; +NEOSTIGMINE METHYLSULFATE 10 MG/10 ML VIAL ONE; +ONDANSETRON HCL INJ/PF 4 MG/2 ML SDV ONE; +ROCURONIUM BROMIDE INJ 50 MG/5 ML VIAL IV ONE; +SUCCINYLCHOLINE CHLORIDE INJ 200 MG/10 ML VIAL ONE
--- NOTE | 2018-08-10 16:23 | ER Document Report ---
ED Medical Screen (RME) - General Chief Complaint: Vaginal Bleeding Stated Complaint: VAGINAL BLEEDING/CRAMPING Time Seen by Provider: 08/10/18 16:10 Primary Care Provider: AMITA BECERRA PA [Primary Care Provider] - Follow up as needed Information source: Patient Notes: 52-year-old female presents emergency department with complaints of right lower quadrant pain and vaginal bleeding. Patient states that she has been having the vaginal bleeding for the last week. She has gone through 7 pads today. Has gone through 1 pad per hour. She had a mirena placed 2.5 years ago by a local SYSTEM ARCHITECT. Has not had any bleeding since having the mirena placed. Patient having associated abdominal pain. Sharp and stabbing sensation located in the RUQ, RLQ area. No radiation. No alleviating or exacerbating factors. Having associated nausea but denies vomiting, diarrhea, constipation. I have greeted and performed a rapid initial assessment of this patient. A comprehensive ED assessment and evaluation of the patient, analysis of test results and completion of the medical decision making process will be conducted by additional ED providers. PHYSICAL EXAMINATION: GENERAL: Well-appearing, well-nourished and in no acute distress. HEAD: Atraumatic, normocephalic. EYES: Pupils equal round extraocular movements intact, conjunctiva are normal. ENT: Nares patent NECK: Normal range of motion LUNGS: No respiratory distress Musculoskeletal: Normal range of motion NEUROLOGICAL: Normal speech, normal gait. PSYCH: Normal mood, normal affect. SKIN: Warm, Dry, normal turgor, no rashes or lesions noted. TRAVEL OUTSIDE OF THE [place] IN LAST 30 DAYS: No - Related Data Allergies/Adverse Reactions: oxycodone Allergy (Verified 06/16/18 09:51) Past Medical History - Past Medical History Cardiac Medical History: Denies: Hx Coronary Artery Disease, Hx Heart Attack, Hx Hypertension Pulmonary Medical History: Reports: Hx Asthma Denies: Hx Bronchitis, Hx COPD, Hx Pneumonia Neurological Medical History: Denies: Hx Cerebrovascular Accident, Hx Seizures Renal/ Medical History: Denies: Hx Peritoneal Dialysis Musculoskeltal Medical History: Denies Hx Arthritis Past Surgical History: Reports: Hx Orthopedic Surgery - right foot - Immunizations Hx Diphtheria, Pertussis, Tetanus Vaccination: Yes - NOT UP TO DATE History of Influenza Vaccine for 04/2017 - 09/2017 Season: Yes Influenza Administration Date for 04/2017 - 09/2017 Season: 04/11/17 Physical Exam - Vital signs Vitals: Temp Pulse Resp BP Pulse Ox 98.6 F 99 18 142/99 H 95 08/10/18 16:02 08/10/18 16:02 08/10/18 16:02 08/10/18 16:02 08/10/18 16:02 Course - Vital Signs Vital signs: Temp Pulse Resp BP Pulse Ox 98.6 F 99 18 142/99 H 95 08/10/18 16:02 08/10/18 16:02 08/10/18 16:02 08/10/18 16:02 08/10/18 16:02 Doctor's Discharge - Discharge Referrals: AMITA BECERRA PA [Primary Care Provider] - Follow up as needed
[2018-08-10 16:45] LABS: ABSOLUTE EOSINOPHILS # (AUTO) 0.1 10^3/uL (0.0-0.6); ABSOLUTE LYMPHOCYTES (AUTO) 1.9 10^3/uL (0.5-4.7); ABSOLUTE MONOCYTES (AUTO) 0.5 10^3/uL (0.1-1.4); BASOPHILS % (AUTO) 0.3 % (0-2); EOSINOPHILS % (AUTO) 1.2 % (0-6); HEMATOCRIT 44.2 % (36.0-47.0); HEMOGLOBIN 15.7 g/dL (12.0-15.5); LYMPHOCYTES % (AUTO) 19.7 % (13-45); MEAN CORPUSCULAR HEMOGLOBIN 30.7 pg (27.0-33.4); MEAN CORPUSCULAR HGB CONC 35.5 g/dL (32.0-36.0); MEAN CORPUSCULAR VOLUME 87 fl (80-97); MONOCYTES % (AUTO) 5.6 % (3-13); PLATELET COUNT 346 10^3/uL (150-450); RED CELL DISTRIBUTION WIDTH 12.5 % (11.5-14.0); SEGMENTED NEUTROPHILS % (AUTO) 73.2 % (42-78); TOTAL CELLS COUNTED % (AUTO) 100 %; WHITE BLOOD COUNT 9.6 10^3/uL (4.0-10.5)
[2018-08-10 17:02] LABS: ALANINE AMINOTRANSFERASE 27 U/L (9-52); ALKALINE PHOSPHATASE 112 U/L (38-126); ANION GAP 13 (5-19); ASPARTATE AMINO TRANSFERASE 21 U/L (14-36); BILIRUBIN,DIRECT 0.4 mg/dL (0.0-0.4); BILIRUBIN,TOTAL 0.9 mg/dL (0.2-1.3); BLOOD UREA NITROGEN 14 mg/dL (7-20); CALCIUM 10.1 mg/dL (8.4-10.2); CARBON DIOXIDE 27 mmol/L (22-30); CHLORIDE 104 mmol/L (98-107); GLUCOSE 125 mg/dL (75-110); POTASSIUM 4.1 mmol/L (3.6-5.0); TOTAL PROTEIN 7.9 g/dL (6.3-8.2)
--- NOTE | 2018-08-10 17:23 | ER Document Report ---
ED GI/ - General Chief Complaint: Vaginal Bleeding Stated Complaint: VAGINAL BLEEDING/CRAMPING Time Seen by Provider: 08/10/18 16:10 Mode of Arrival: Ambulatory Information source: Patient Notes: 52-year-old female presented to ED for complaint of vaginal bleeding with severe Rubio pelvic pain. She states she also has right lower quadrant pain as well as right upper quadrant and generalized abdominal pain she does have hyperactive bowel sounds. She states that she has been gone through 7 sanitary pads today. She states that she has not had a menstrual cycle in 7 years because she been on Mirena just had a replaced about a year and a half maybe 2 years ago and this is her first. In a long time. She states the pain is sharp stabbing with cramping. She states she was recently seen by and had a CAT scan in June that showed she had ovarian cyst and an enlarged appendix and a renal stone. She states she would like to be tested to find out what is going on with her pain and bleeding. Patient is alert oriented respirations regular and unlabored speaking in full sentences walks with a even steady gait. TRAVEL OUTSIDE OF THE [place] IN LAST 30 DAYS: No - HPI Patient complains to provider of: Abdominal pain, Pelvic pain, Vaginal bleeding, Other Onset: Last week Timing/Duration: Gradual, Worse Quality of pain: Sharp, Stabbing Severity at maximum: Moderate Severity in ED: Moderate Pain Level: 3 Location: RUQ, RLQ, Pelvis Vaginal bleeding (Compared to normal period): Heavier Associated symptoms: Nausea Exacerbated by: Movement, Walking, Coughing, Food Relieved by: Denies Similar symptoms previously: Yes Recently seen / treated by doctor: Yes - Related Data Allergies/Adverse Reactions: oxycodone Allergy (Verified 06/16/18 09:51) Past Medical History - General Information source: Patient - Social History Smoking Status: Never Smoker Frequency of alcohol use: None Drug Abuse: None Lives with: Family Family History: Reviewed & Not Pertinent Patient has suicidal ideation: No Patient has homicidal ideation: No - Past Medical History Cardiac Medical History: Reports: None Pulmonary Medical History: Reports: Hx Asthma EENT Medical History: Reports: None Neurological Medical History: Reports: None Endocrine Medical History: Reports: None Renal/ Medical History: Reports: Hx Kidney Stones, Hx Ovarian Cysts, Other - Twisted kidney left Malignancy Medical History: Reports: None Musculoskeletal Medical History: Reports Hx Musculoskeletal Deformity, Reports Hx Musculoskeletal Trauma Skin Medical History: Reports None Psychiatric Medical History: Reports: None Traumatic Medical History: Reports: None Infectious Medical History: Reports: None Past Surgical History: Reports: Hx Cholecystectomy, Hx Orthopedic Surgery - C- spine fusion right knee surgery right foot - Immunizations Hx Diphtheria, Pertussis, Tetanus Vaccination: Yes - NOT UP TO DATE Review of Systems - Review of Systems Constitutional: No symptoms reported EENT: No symptoms reported Cardiovascular: No symptoms reported Respiratory: No symptoms reported Gastrointestinal: Abdominal pain - And pelvic pain, Nausea Genitourinary: No symptoms reported Female Genitourinary: Vaginal bleeding Musculoskeletal: No symptoms reported Skin: No symptoms reported Hematologic/Lymphatic: No symptoms reported Neurological/Psychological: No symptoms reported -: Yes All other systems reviewed and negative Physical Exam - Vital signs Vitals: Temp Pulse Resp BP Pulse Ox 98.6 F 99 18 142/99 H 95 08/10/18 16:02 08/10/18 16:02 08/10/18 16:02 08/10/18 16:02 08/10/18 16:02 Interpretation: Normal - General General appearance: Appears well, Alert - HEENT Head: Normocephalic, Atraumatic Eyes: Normal Pupils: PERRL - Respiratory Respiratory status: No respiratory distress Chest status: Nontender Breath sounds: Normal Chest palpation: Normal - Cardiovascular Rhythm: Regular Heart sounds: Normal auscultation Murmur: No - Abdominal Inspection: Normal Distension: No distension Bowel sounds: Hypoactive Tenderness: Tender - Generalized right side Organomegaly: No organomegaly. No: Hepatomegaly, Splenomegaly, Mass - Back Back: Normal, Nontender - Extremities General upper extremity: Normal inspection, Nontender, Normal color, Normal ROM, Normal temperature General lower extremity: Normal inspection, Nontender, Normal color, Normal ROM, Normal temperature, Normal weight bearing. No: Elizabet's sign - Neurological Neuro grossly intact: Yes Cognition: Normal Orientation: AAOx4 Mallika Coma Scale Eye Opening: Spontaneous Riparius Coma Scale Verbal: Oriented Riparius Coma Scale Motor: Obeys Commands Mallika Coma Scale Total: 15 Speech: Normal Motor strength normal: LUE, RUE, LLE, RLE Sensory: Normal - Psychological Associated symptoms: Normal affect, Normal mood - Skin Skin Temperature: Warm Skin Moisture: Dry Skin Color: Normal Course - Re-evaluation Re-evalutation: 08/10/18 19:[address] discussed with patient. Dr. Winslow called me that radiology had called her that the patient had an appendicitis. Dr. Michael has been notified and he is at bedside. The IUD was in the vaginal vault and I have removed the IUD. There is minimal bleeding now after the IUD has expelled itself. IV fluids of normal saline 1 L bolus then at [address] started [address] Dr[address] Michael's orders. She is also been started on Zosyn 3.75 grams IV. Patient had a recent CT that showed her appendix being 7.4 mm dilated to date is 12. She does have some mild inflammation around the appendix. Chest x-ray was ordered per Dr. Michael recommendation. All labs x-rays ultrasounds have been provided for Dr. Michael. - Vital Signs Vital signs: Temp Pulse Resp BP Pulse Ox 97.8 F 75 18 124/69 95 08/11/18 01:09 08/11/18 01:09 08/11/18 01:09 08/11/18 01:09 08/11/18 01:09 - Laboratory Result Diagrams: 08/10/18 16:32 08/10/18 16:32 Laboratory results interpreted by me: 08/10/18 08/10/18 16:32 16:32 Hgb 15.7 H Glucose 125 H - Diagnostic Test Radiology reviewed: Image reviewed, Reports reviewed Discharge - Discharge Clinical Impression: Appendicitis Qualifiers: Appendicitis type: acute appendicitis Acute appendicitis type: unspecified acute appendicitis type Qualified Code(s): K35.80 - Unspecified acute rosemary endicitis Condition: Stable Disposition: ADMITTED INPATIENT Admitting Provider: Surgicalist Tavon Michael
--- NOTE | 2018-08-10 18:36 | RADIOLOGY REPORT (SQ) ---
EXAM DESCRIPTION: U/S NON OB PEL TV W/DOPPLER COMPLETED DATE/TIME: 08/10/2018 6:23 pm REASON FOR STUDY: pelvic pain vaginal bleed LMP 7 years earlier COMPARISON: None. TECHNIQUE: Dynamic and static grayscale images acquired of the pelvis via transvaginal approach and recorded on PACS. Additional selected color Doppler and spectral images recorded. LIMITATIONS: None. FINDINGS: UTERUS: Contour normal. No mass. ENDOMETRIAL STRIPE: No thickening. The IUD cannot be identified. There is a small amount of fluid i n the endometrial canal. CERVIX: 2.4 cm. There is small amount of fluid in the endocervical canal. RIGHT OVARY AND DOPPLER: Normal size. No worrisome masses. Normal arterial vascular flow without evid ence for torsion. There is a small right ovarian cyst measuring 17 x 17 x 11 mm. LEFT OVARY AND DOPPLER: Ovary not seen. FREE FLUID: None noted. OTHER: No other significant finding. MEASUREMENTS: UTERUS: 9.4 x 6.2 x 4.4 cm. ENDOMETRIAL STRIPE: 4 mm. RIGHT OVARY: 4.3 x 1.9 x 2.2 cm. LEFT OVARY: Ovary not seen. IMPRESSION: The IUD is not identified within the endocervical canal. There is a small right ovarian cyst almost certainly benign. No follow-up imaging is required for this. TECHNICAL DOCUMENTATION: JOB ID: [id number] [employer]- All Rights Reserved Rev-11/26 Reading location - IP/workstation name: [email or web address]
--- NOTE | 2018-08-10 18:43 | RADIOLOGY REPORT (SQ) ---
EXAM DESCRIPTION: CT ABD/PELVIS WITH IV ONLY COMPLETED DATE/TIME: 08/10/2018 6:27 pm REASON FOR STUDY: RLQ abdominal pain COMPARISON: Pelvic ultrasound done earlier the same day. TECHNIQUE: CT scan of the abdomen and pelvis performed using helical scanning technique with dynamic intravenous contrast injection. No oral contrast. Images reviewed with lung, soft tissue, and bone windows. Reconstructed coronal and sagittal MPR images reviewed. Delayed images for evaluation of the urinary system also acquired. All images stored on PACS. All CT scanners at this facility use dose modulation, iterative reconstruction, and/or weight based d osing when appropriate to reduce radiation dose to as low as reasonably achievable (ALARA). [facility]: Dose Right [facility]: CareDose [facility]: Dose Right [facility]: Teradose 4D [facility]: The Rounds CONTRAST TYPE AND DOSE: contrast/concentration: Isovue 350.00 mg/ml; Total Contrast Delivered: 99.0 ml; Total Saline Delivered: 57.0 ml RENAL FUNCTION: BUN 14, creatinine 0.83 RADIATION DOSE: CT Rad equipment meets quality standard of care and radiation dose reduction techniq ues were employed. CTDIvol: 11.2 - 15.6 mGy. DLP: 1553 mGy-cm.. LIMITATIONS: None. FINDINGS: LOWER CHEST: No significant findings. No nodules or infiltrates. LIVER: Normal size. No masses. No dilated ducts. SPLEEN: Normal size. No focal lesions. PANCREAS: No masses. No significant calcifications. No adjacent inflammation or peripancreatic fluid collections. Pancreatic duct not dilated. GALLBLADDER: No identified stones by CT criteria. No inflammatory changes to suggest cholecystitis. ADRENAL GLANDS: No significant masses or asymmetry. RIGHT KIDNEY AND URETER: No solid masses. No significant calcifications. No hydronephrosis or hyd roureter. LEFT KIDNEY AND URETER: No solid masses. No significant calcifications. No hydronephrosis or hydr oureter. AORTA AND VESSELS: No aneurysm. No dissection. Renal arteries, SMA, celiac without stenosis. RETROPERITONEUM: No retroperitoneal adenopathy, hemorrhage or masses. BOWEL AND PERITONEAL CAVITY: No masses or inflammatory changes. No free fluid or peritoneal masses. APPENDIX: The appendix is dilated measured at 12 mm. Mild surrounding inflammation. Early appendici tis is suspected. The appendix extends to near the level of the umbilicus in the midline. PELVIS: The IUD is situated within the cervix. ABDOMINAL WALL: There is an umbilical hernia containing omental fat only. BONES: No significant or acute findings. OTHER: No other significant finding. IMPRESSION: 1. Dilated appendix with very mild surrounding inflammation. Early appendicitis cannot be excluded. Clinical correlation is needed. 2. IUD is malpositioned in the lower uterine segment and in the cervix. TECHNICAL DOCUMENTATION: JOB ID: [id number] Quality ID # [id number]: Final reports with documentation of one or more dose reduction techniques (e.g., Au tomated exposure control, adjustment of the mA and/or kV according to patient size, use of iterative reconstruction technique) 2010 [email or web address]- All Rights Reserved Reading location - IP/workstation name: [email or web address]
[2018-08-10] MEDS ORDERED: NORMAL SALINE 1000 ML 1,000 ML IV ONE ×2 (18:51)
[2018-08-10] MEDS ORDERED: PIPERACILLIN/TAZOBACTAM 3.375 GM VIAL IV ONE ×2 (18:51→21:23)
--- NOTE | 2018-08-10 19:21 | PDOC H&P ---
History of Present Illness Admission Date/PCP: [facility] Patient complains of: abdominal cramps History of Present Illness: ANTOLIN VILLEGAS is a 52 year old female who has been having abdominal cramps and getting worse since 5 days ago. Associated nausea/vomiting with chills. Went to ED today primarily for vaginal bleeding and had CT scan of abdomen/pelvis which showed dilated appendix ro 12 mm with mild inflammation. Her IUD which SKIP TRACER thought was the cause of bleeding was removed. Past Medical History Cardiac Medical History: Reports: None Denies: Coronary Artery Disease, Myocardial Infarction, Hypertension Pulmonary Medical History: Reports: Asthma Denies: Bronchitis, Chronic Obstructive Pulmonary Disease (COPD), Pneumonia EENT Medical History: Reports: None Neurological Medical History: Reports: None Denies: Seizures Endocrine Medical History: Reports: None Renal/ Medical History: Reports: Other - Twisted kidney left Malignancy Medical History: Reports: None Musculoskeltal Medical History: Denies: Arthritis Skin Medical History: Reports: None Psychiatric Medical History: Reports: None Traumatic Medical History: Reports: None Hematology: Denies: Anemia Infectious Medical History: Reports: None Past Surgical History Past Surgical History: Reports: Cholecystectomy, Orthopedic Surgery - C-spine fusion right knee surgery right foot Social History Lives with: Family Smoking Status: Never Smoker Family History Family History: Reviewed & Not Pertinent Parental Family History Reviewed: Yes Children Family History Reviewed: No Sibling(s) Family History Reviewed.: No Medication/Allergy Home Medications: Albuterol Sulfate [Ventolin HFA MDI 18 GM] 2 puff IH Q4H PRN 10/30/17 Budesonide/Formoterol Fumarate [Symbicort 160-4.5 Mcg Inhaler] 2 puff IH BID 10/30/17 Cholecalciferol (Vitamin D3) [Vitamin D3 1000 Unit Tablet] 1,000 mg PO DAILY 10/30/17 Loratadine 10 mg PO DAILY 10/30/17 Mirabegron [Myrbetriq] 25 mg PO DAILY 10/30/17 Montelukast Sodium 10 mg PO DAILY 10/30/17 Multivitamin [Multivitamins] 1 each PO DAILY 10/30/17 Tiotropium [place] [Spiriva] 1 puff IH DAILY 10/30/17 Albuterol Sulfate [Ventolin 0.083% Neb 2.5 mg/3 mL Ampul] 1 vial NEB Q4 06/16/18 Atorvastatin Calcium [Lipitor 10 mg Tablet] 5 mg PO QHS 06/16/18 Celecoxib [Celebrex 200 mg Capsule] 200 mg PO DAILY 06/16/18 Hydrocodone/Acetaminophen [[place] 5-325 mg Tablet] 1 tab PO Q6HP PRN #14 tablet 06/23/18 Allergies/Adverse Reactions: oxycodone Allergy (Verified 06/16/18 09:51) Review of Systems Constitutional: PRESENT: as per HPI Eyes: PRESENT: other - no visual/hearing changes Cardiovascular: PRESENT: other - no chest pains/cough Gastrointestinal: PRESENT: abdominal pain, nausea, vomiting Genitourinary: PRESENT: other - no dysuria Physical Exam Vital Signs: Temp Pulse Resp BP Pulse Ox 98.6 F 99 18 142/99 H 95 08/10/18 16:02 08/10/18 16:02 08/10/18 16:02 08/10/18 16:02 08/10/18 16:02 Intake & Output 08/09/18 08/10/18 08/11/18 06:59 06:59 06:59 Weight 89.4 kg General appearance: PRESENT: mild distress Head exam: PRESENT: atraumatic Eye exam: PRESENT: conjunctiva pink Mouth exam: PRESENT: moist Neck exam: PRESENT: full ROM Respiratory exam: PRESENT: clear to auscultation kimberly Cardiovascular exam: PRESENT: RRR Pulses: PRESENT: normal radial pulses Vascular exam: PRESENT: normal capillary refill GI/Abdominal exam: PRESENT: soft, tenderness - RLQ mild LLQ and suprapubic Rectal exam: PRESENT: deferred Extremities exam: PRESENT: full ROM Musculoskeletal exam: PRESENT: ambulatory Neurological exam: PRESENT: alert, oriented to person, oriented to place, oriented to time, oriented to situation Psychiatric exam: PRESENT: appropriate affect Skin exam: PRESENT: normal color, warm Results Laboratory Results: 08/10/18 16:32 08/10/18 16:32 08/10/18 08/10/18 08/10/18 16:32 16:32 16:32 WBC 9.6 RBC 5.10 Hgb 15.7 H Hct 44.2 MCV 87 MCH 30.7 MCHC 35.5 RDW 12.5 Plt Count 346 Seg Neutrophils % 73.2 Lymphocytes % 19.7 Monocytes % 5.6 Eosinophils % 1.2 Basophils % 0.3 Absolute Neutrophils 7.0 Absolute Lymphocytes 1.9 Absolute Monocytes 0.5 Absolute Eosinophils 0.1 Absolute Basophils 0.0 Sodium 144.0 Potassium 4.1 Chloride 104 Carbon Dioxide 27 Anion Gap 13 BUN 14 Creatinine 0.83 Est GFR ( Amer) > 60 Est GFR (Non-Af Amer) > 60 Glucose 125 H Calcium 10.1 Total Bilirubin 0.9 AST 21 ALT 27 Alkaline Phosphatase 112 Total Protein 7.9 Albumin 5.0 Lipase 90.0 Serum HCG, Qual NEGATIVE Impressions: Abdomen/Pelvis CT 08/10/18 16:21 IMPRESSION: 1. Dilated appendix with very mild surrounding inflammation. Early appendicitis cannot be excluded. Clinical correlation is needed. 2. IUD is malpositioned in the lower uterine segment and in the cervix. Transvaginal US 08/10/18 17:16 IMPRESSION: The IUD is not identified within the endocervical canal. There is a small right ovarian cyst almost certainly benign. No follow-up imaging is required for this. Assessment & Plan - Diagnosis (1) Appendicitis Qualifiers: Appendicitis type: acute appendicitis Acute appendicitis type: unspecified acute appendicitis type Qualified Code(s): K35.80 - Unspecified acute appendicitis Is this a current diagnosis for this admission?: Yes (2) Vaginal bleeding Is this a current diagnosis for this admission?: Yes - Time Time Spent: 30 to 50 Minutes - Inpatient Certification Medical Necessity: Need For IV Fluids, Need for IV Antibiotics, Need for Surgery - Plan Summary Plan Summary: IV antibiotics Hydrate For lap appendectomy
--- NOTE | 2018-08-10 19:25 | RADIOLOGY REPORT (SQ) ---
EXAM DESCRIPTION: CHEST 2 VIEWS COMPLETED DATE/TIME: 08/10/2018 7:16 pm REASON FOR STUDY: preop appendectomy hx asthma COMPARISON: 06/16/2018 EXAM PARAMETERS: NUMBER OF VIEWS: two views TECHNIQUE: Digital Frontal and Lateral radiographic views of the chest acquired. RADIATION DOSE: NA LIMITATIONS: none FINDINGS: LUNGS AND PLEURA: No opacities, masses or pneumothorax. No pleural effusion. MEDIASTINUM AND HILAR STRUCTURES: No masses or contour abnormalities. HEART AND VASCULAR STRUCTURES: Heart size is borderline. There is no pulmonary edema. BONES: No acute findings. HARDWARE: None in the chest. OTHER: No other significant finding. IMPRESSION: Borderline heart size with no pulmonary edema. TECHNICAL DOCUMENTATION: JOB ID: [id number] [employer]- All Rights Reserved Reading location - IP/workstation name: [email or web address]
[2018-08-10] MEDS ORDERED: HYDROMORPHONE HCL INJ/PF 2 MG/ML AMPULE ONE (19:38)
[2018-08-10] MEDS ORDERED: FENTANYL CITRATE INJ/PF 100 MCG/2 ML AMPUL ONE (19:38)
[2018-08-10] MEDS ORDERED: MIDAZOLAM 2 MG/2 ML INJ ONE (19:39)
[2018-08-10] MEDS ORDERED: PROPOFOL INJ 200 MG/20 ML VIAL IV ONE (19:39)
[2018-08-10] MEDS ORDERED: ACETAMINOPHEN 1,000 MG/100 ML RTUPB IV ONE (19:39)
[2018-08-10] MEDS ORDERED: BUPIVACAINE HCL 0.25 % INJ/PF (2.5 MG/1 ML) 30 ML VIAL ONE (20:00)
[2018-08-10] MEDS ORDERED: IPRATROPIUM/ALBUTEROL 0.5-2.5 MG/3 ML AMPUL NEB ONE (20:00)
[2018-08-10 20:20] LABS: APPEARANCE,URINE CLEAR; BILIRUBIN,URINE NEGATIVE (NEGATIVE); COLOR,URINE STRAW; GLUCOSE, URINE NEGATIVE (NEGATIVE); KETONES,URINE NEGATIVE (NEGATIVE); LEUKOCYTE ESTERASE,URINE NEGATIVE (NEGATIVE); NITRITE,URINE NEGATIVE (NEGATIVE); PROTEIN,URINE NEGATIVE (NEGATIVE); UROBILINOGEN,URINE NEGATIVE mg/dL (<2.0)
[2018-08-10 20:21] LABS: URINE SPECIFIC GRAVITY > 1.060
[2018-08-10] MEDS ORDERED: FENTANYL CITRATE INJ/PF 100 MCG/2 ML AMPUL IV PRN ×3 (20:36)
[2018-08-10] MEDS ORDERED: PROMETHAZINE HCL INJ 25 MG/1 ML VIAL IV PRN (20:36)
[2018-08-10] MEDS ORDERED: ONDANSETRON HCL INJ/PF 4 MG/2 ML SDV IV PRN (21:18)
[2018-08-10] MEDS ORDERED: NORMAL SALINE 500 ML IV ONE (21:18)
[2018-08-10] MEDS ORDERED: KETOROLAC TROMETHAMINE INJ/PF 30 MG/1 ML SDV IV SCH (21:30)
--- NOTE | 2018-08-10 23:26 | PDOC CONSULTATION ---
Consultation Consult Date: 08/10/18 Attending physician:: RM MAE Consult reason:: Vaginal bleeding with Mirena IUD History of Present Illness Admission Date/PCP: 08/10/18 19:38 [facility] Patient complains of: Vaginal bleeding with Mirena IUD History of Present Illness: ANTOLIN VILLEGAS is a 52 year old who presented to the emergency department complaining of abdominal pain and heavy vaginal bleeding. Patient has a Mirena IUD, which was placed approximately 2 years ago. Up until 2 days ago, she had amenorrhea with the use of this device. This was her second Mirena IUD which worked well for her. She started bleeding heavily 2 days ago, soaking through 1 pad an hour. She was complaining of intense cramping and abdominal pain. She was then diagnosed with an appendicitis. She underwent a pelvic ultrasound which showed her IUD in the lower uterine segment and in the endocervical canal. During her surgery, the IUD was removed. She is currently having slight bleeding, with no complaints of cramping. Past Medical History LMP: N/A--Mirena IUD Gynecological Infection: No 1 Male Delivery: Spontaneous Vaginal Delivery 5 Female Delivery: Spontaneous Vaginal Delivery Cardiac Medical History: Reports: None Denies: Coronary Artery Disease, Myocardial Infarction, Hypertension Pulmonary Medical History: Reports: Asthma Denies: Bronchitis, Chronic Obstructive Pulmonary Disease (COPD), Pneumonia EENT Medical History: Reports: None Neurological Medical History: Reports: None Denies: Seizures Endocrine Medical History: Reports: None Renal/ Medical History: Reports: Other - Twisted kidney left Malignancy Medical History: Reports: None Musculoskeltal Medical History: Denies: Arthritis Skin Medical History: Reports: None Psychiatric Medical History: Reports: None Traumatic Medical History: Reports: None Infectious Medical History: Reports: None Social History Lives with: Family Smoking Status: Never Smoker Frequency of Alcohol Use: Rare Hx Recreational Drug Use: No Hx Prescription Drug Abuse: No Family History Family History: Reviewed & Not Pertinent Parental Family History Reviewed: No - N/A Children Family History Reviewed: NA Sibling(s) Family History Reviewed.: NA Medication/Allergy Allergies/Adverse Reactions: oxycodone Allergy (Verified 06/16/18 09:51) Review of Systems Constitutional: PRESENT: as per HPI Eyes: PRESENT: as per HPI Ears: PRESENT: as per HPI Nose, Mouth, and Throat: PRESENT: as per HPI Breasts: PRESENT: as per HPI Cardiovascular: PRESENT: as per HPI Respiratory: PRESENT: as per HPI Gastrointestinal: PRESENT: abdominal pain Genitourinary: PRESENT: as per HPI Physical Exam - Physical Exam Vital Signs: Temp Pulse Resp BP Pulse Ox 98.5 F 91 20 145/70 H 100 08/10/18 19:50 08/10/18 19:50 08/10/18 19:50 08/10/18 19:50 08/10/18 19:50 Intake & Output 08/09/18 08/10/18 08/11/18 06:59 06:59 06:59 Intake Total 1000 Balance 1000 Weight 89.4 kg General appearance: PRESENT: no acute distress Respiratory exam: PRESENT: clear to auscultation [email or web address] Cardiovascular exam: PRESENT: RRR GI/Abdominal exam: PRESENT: normal bowel sounds, soft Extremities exam: ABSENT: calf tenderness, clubbing, full ROM, joint swelling, pedal edema, tenderness, +1 edema, +2 edema, other - Gynecological Exam Perineum: normal Vagina: other - Not currently bleeding Result Laboratory Results: 08/10/18 16:32 08/10/18 16:32 08/10/18 08/10/18 08/10/18 16:32 16:32 16:32 WBC 9.6 RBC 5.10 Hgb 15.7 H Hct 44.2 MCV 87 MCH 30.7 MCHC 35.5 RDW 12.5 Plt Count 346 Seg Neutrophils % 73.2 Lymphocytes % 19.7 Monocytes % 5.6 Eosinophils % 1.2 Basophils % 0.3 Absolute Neutrophils 7.0 Absolute Lymphocytes 1.9 Absolute Monocytes 0.5 Absolute Eosinophils 0.1 Absolute Basophils 0.0 Sodium 144.0 Potassium 4.1 Chloride 104 Carbon Dioxide 27 Anion Gap 13 BUN 14 Creatinine 0.83 Est GFR ( Amer) > 60 Est GFR (Non-Af Amer) > 60 Glucose 125 H Calcium 10.1 Total Bilirubin 0.9 AST 21 ALT 27 Alkaline Phosphatase 112 Total Protein 7.9 Albumin 5.0 Lipase 90.0 Serum HCG, Qual NEGATIVE Urine Color Urine Appearance Urine pH Ur Specific [place] Urine Protein Urine Glucose (UA) Urine Ketones Urine Blood Urine Nitrite Ur Leukocyte Esterase Urine WBC (Auto) Urine RBC (Auto) 08/10/18 19:10 WBC RBC Hgb Hct MCV MCH MCHC RDW Plt Count Seg Neutrophils % Lymphocytes % Monocytes % Eosinophils % Basophils % Absolute Neutrophils Absolute Lymphocytes Absolute Monocytes Absolute Eosinophils Absolute Basophils Sodium Potassium Chloride Carbon Dioxide Anion Gap BUN Creatinine Est GFR ( Amer) Est GFR (Non-Af Amer) Glucose Calcium Total Bilirubin AST ALT Alkaline Phosphatase Total Protein Albumin Lipase Serum HCG, Qual Urine Color STRAW Urine Appearance CLEAR Urine pH 5.0 Ur Specific [place] > 1.060 Urine Protein NEGATIVE Urine Glucose (UA) NEGATIVE Urine Ketones NEGATIVE Urine Blood NEGATIVE Urine Nitrite NEGATIVE Ur Leukocyte Esterase NEGATIVE Urine WBC (Auto) 0 Urine RBC (Auto) 0 Impressions: Abdomen/Pelvis CT 08/10/18 16:21 IMPRESSION: 1. Dilated appendix with very mild surrounding inflammation. Early appendicitis cannot be excluded. Clinical correlation is needed. 2. IUD is malpositioned in the lower uterine segment and in the cervix. Transvaginal US 08/10/18 17:16 IMPRESSION: The IUD is not identified within the endocervical canal. There is a small right ovarian cyst almost certainly benign. No follow-up imaging is required for this. Chest X-Ray 08/10/18 18:47 IMPRESSION: Borderline heart size with no pulmonary edema. Assessment & Plan - Diagnosis (1) Appendicitis Qualifiers: Appendicitis type: acute appendicitis Acute appendicitis type: unspecified acute appendicitis type Qualified Code(s): K35.80 - Unspecified acute appendicitis Is this a current diagnosis for this admission?: Yes (2) Malpositioned intrauterine device (IUD) Is this a current diagnosis for this admission?: Yes (3) Vaginal bleeding Is this a current diagnosis for this admission?: Yes - Time Time Spent: 30 to 50 Minutes - Inpatient Certification Based on my medical assessment, after consideration of the patient's comorbidities, presenting symptoms, or acuity I expect that the services needed warrant INPATIENT care.: Yes I certify that my determination is in accordance with my understanding of Medicare's requirements for reasonable and necessary INPATIENT services [42 CFR 412.3e].: Yes - Plan Summary Plan Summary: Plan: 1. Malpositioned Mirena IUD (lower uterine segment)--removed in the OR --Most likely withdrawal bleeding from IUD not being positioned in the en dometrial cavity 2. She will follow-up outpatient and more than likely reinitiate OCPs until postmenopausal 3. Will watch overnight, if heavy bleeding restarts, I will place her on norethindrone until she can follow-up outpatient
[2018-08-11 07:06] LABS: ABSOLUTE LYMPHOCYTES (AUTO) 0.6 10^3/uL (0.5-4.7); ABSOLUTE MONOCYTES (AUTO) 0.1 10^3/uL (0.1-1.4); BASOPHILS % (AUTO) 0.4 % (0-2); EOSINOPHILS % (AUTO) 0.1 % (0-6); HEMATOCRIT 39.4 % (36.0-47.0); HEMOGLOBIN 13.7 g/dL (12.0-15.5); LYMPHOCYTES % (AUTO) 6.8 % (13-45); MEAN CORPUSCULAR HEMOGLOBIN 30.1 pg (27.0-33.4); MEAN CORPUSCULAR HGB CONC 34.7 g/dL (32.0-36.0); MEAN CORPUSCULAR VOLUME 87 fl (80-97); MONOCYTES % (AUTO) 1.1 % (3-13); PLATELET COUNT 261 10^3/uL (150-450); RED BLOOD COUNT 4.55 10^6/uL (3.72-5.28); RED CELL DISTRIBUTION WIDTH 12.5 % (11.5-14.0); SEGMENTED NEUTROPHILS % (AUTO) 91.6 % (42-78); TOTAL CELLS COUNTED % (AUTO) 100 %; WHITE BLOOD COUNT 8.8 10^3/uL (4.0-10.5)
--- NOTE | 2018-08-11 07:38 | EKG REPORT ---
SEVERITY:- ABNORMAL ECG - SINUS RHYTHM LEFT VENTRICULAR HYPERTROPHY : Confirmed by: Enmanuel Villanueva MD 11-Aug-2018 07:37:13
[2018-08-11 10:48] VITALS: BP 123/64
--- NOTE | 2018-08-11 22:32 | DISCHARGE SUMMARY E ---
Discharge Summary NAME: ANTOLIN VILLEGAS : 1965 AGE: 52Y ADMITTED: 08/10/2018 DISCHARGED: 08/11/2018 PROCEDURE: Laparoscopic appendectomy. FINAL DIAGNOSIS: Early acute appendicitis, *------* vaginal bleeding post removal of IUD. HOSPITAL COURSE: This is a 52-year-old female who had abdominal cramps for the past few days. Pain localized more or less in the right lower quadrant and had some vaginal bleeding which ultimately brought her to the hospital. CAT scan of the abdomen was done which showed dilated appendix with early acute appendicitis. The IUD was removed by the nurse practitioner and patient then underwent laparoscopic appendectomy for acute appendicitis. Immediately postop, patient had some vaginal bleeding and MARKET RESEARCH ANALYST was consulted who felt that the bleeding was not significant. Patient okay to go home and follow up with her own MARKET RESEARCH ANALYST or at [facility]. Patient to be followed up in the surgical clinic in about 2 weeks. A note was given to the patient to go back to work in about a week for light duty for another 2 weeks then no restraints afterwards. Patient also did not require any pain medication since she feels that she does not need any. Patient subsequently discharged improved on 08/11/2018 with the above final diagnosis. DICTATING PHYSICIAN: CHERYL HOLLIDAY M.D. [id number] PHY#: [id number] ID: [id number] JOB#: [id number] ACCT: [id number] cc:Ashkan PARRA PA >
--- NOTE | 2018-08-17 16:48 | OPERATIVE REPORT E ---
Operative Report NAME: ANTOLIN VILLEGAS : 1965 AGE: 52Y DATE OF SURGERY: 08/10/2018 ROOM: 206 PREOPERATIVE DIAGNOSIS: ACUTE APPENDICITIS. POSTOPERATIVE DIAGNOSIS: ACUTE APPENDICITIS. PROCEDURE: Laparoscopic appendectomy. SURGEON: CHERYL HOLLIDAY M.D. ANESTHESIA: General. INDICATION: This is a 52-year-old female with abdominal pains for the past few days. She then went to the ED where a CT scan of the abdomen revealed a dilated appendix about 2 mm with surrounding inflammation indicating early acute appendicitis. She was tender in the right lower quadrant as well as mild tenderness in the left lower quadrant. She had an IUD that was malpositioned and removed in the ED by physician assistant professor of philosophy thinking this is the cause of her vaginal bleeding. At any rate, the patient was then taken to the OR for a laparoscopic appendectomy. DESCRIPTION OF PROCEDURE: The patient was placed in the supine position and after adequate general anesthesia the abdomen was then prepped and draped in the usual sterile fashion. Appropriate timeout was then called. Next an infraumbilical incision was made and the fascia identified and grasped with Ashley clamps and divided between the Ashley clamps. Two sutures of 0 Vicryl were placed on each side of the Ashley clamps and the Ashley clamps released. The abdominal cavity was then digitally palpated through the fascial defect. No evidence of adhesions noted and, therefore, a Ki trocar was then inserted through the fascia into the abdominal cavity and CO2 insufflated to a pressure of 15 mmHg. Two other trocars were placed at 5 mm of the suprapubic area and a 12 mm in the left lower quadrant under direct vision. The appendix was then identified, noted to be enlarged but the base of the appendix appeared to be somewhat reddish, slightly inflamed. The mesoappendix was then divided with Harmonic tracey and the base of the appendix identified and the appendix lifted up with a grasper. The appendix was subsequently stapled right at the takeoff from the cecum with a 45 mm blue load. The appendiceal specimen was then placed in an Endobag and pulled out through the umbilical port. The appendiceal stump was inspected and no evidence of significant bleeding noted. No other obvious abnormality noted in the pelvic area on visual examination. All the trocars were then removed and CO2 allowed to come out at the trocar sites. The infraumbilical fascial defect was then closed with a [id number] suture using 0 Vicryl and the 2 stay sutures tied together. All the skin incisions were then closed with 4-0 Vicryl after injecting Marcaine at the infraumbilical fascia and through all the incisions. Steri-Strips placed over the incision sites. The patient tolerated the procedure well and brought to the recovery room in satisfactory condition. Needle, instrument, and sponge counts were all correct. Estimated blood loss was minimal. DICTATING PHYSICIAN: CHERYL HOLLIDAY M.D. [id number] PHY#: [id number] ID: [id number] JOB#: [id number] ACCT: [id number] cc:CHERYL HOLLIDAY M.D. >
== END 2018-08-11 11:27 | disposition home or self-care (01) ==
LOC: ER 15:54 → INTOOBSV 19:38 → EH 19:38 → 2N 22:25
PROVIDERS: ATTEND Surgery
PROC: 0DTJ4ZZ Resection of Appendix, Percutaneous Endoscopic Approach (ICD-10-PCS; 2018-08-10)
PROC: 0UPDXHZ Removal of Contraceptive Device from Uterus and Cervix, External Approach (ICD-10-PCS; 2018-08-10)
PROC: 3E02340 Introduction of Influenza Vaccine into Muscle, Percutaneous Approach (ICD-10-PCS; principal; 2018-08-11)
DX: K35.80 Unspecified acute appendicitis (principal); K38.8 Other specified diseases of appendix; K38.2 Diverticulum of appendix; T83.32XA Displacement of intrauterine contraceptive device, initial encounter; Y84.8 Other medical procedures as the cause of abnormal reaction of the patient, or of later complication, without mention of misadventure at the time of the procedure; N93.9 Abnormal uterine and vaginal bleeding, unspecified; Q63.3 Hyperplastic and giant kidney; Z30.432 Encounter for removal of intrauterine contraceptive device; Z23 Encounter for immunization; Z79.899 Other long term (current) drug therapy; Z90.49 Acquired absence of other specified parts of digestive tract; Z87.442 Personal history of urinary calculi
CPT/HCPCS: 93005; 99285; 96374; 36415 ×2; 83690; 84703; 85025 ×2; 80053; 81001; 88342 ×2; 88304 ×2; 88313 ×2; 71046; 76830; 93976; 74177; 90686; 93010; 44970; 58301; G0378 ×2; G0008; J2250; J3490 ×3; J1100; J1170; J0330; J2405; J7030; J2704; J7620; J2543; J0131; 840; 88307; 90471; J3010

== ENCOUNTER 2018-12-26 15:02 | Emergency (ER) | payer BC, OTHER ==
[2018-12-26] MEDS ORDERED: ALBUTEROL SULFATE 0.083% NEB 2.5 MG/3 ML AMPUL NEB ONE (18:42)
--- NOTE | 2018-12-26 18:45 | ER Document Report ---
ED Medical Screen (RME) - General Chief Complaint: Asthma Exacerbation Stated Complaint: TROUBLE BREATHING Time Seen by Provider: 12/26/18 18:32 Primary Care Provider: ZELDA,ULISSES [Primary Care Provider] - Follow up as needed Mode of Arrival: Ambulatory Information source: Patient Notes: 53-year-old female presented to ED for complaint of shortness of breath chest tightness since Wednesday. She states she had low-grade fevers up to 101 since Wednesday off and on. She states she has a history of asthma and she had an appendectomy in July when they did the appendectomy they sent the specimen off and they found tumors in the specimens and she had to have a second surgery on December 01 to remove more tissue. She states she is on Symbicort, albuterol, and Spiriva at home but she is just not able to get a good breath in her chest is been very tight. Vital signs are stable in the triage. Lungs sound clear to auscultation. She will have blood work blood cultures chest x-ray CTA EKG and an albuterol nebulizer. I have greeted and performed a rapid initial assessment of this patient. A comprehensive ED assessment and evaluation of the patient, analysis of test results and completion of medical decision making process will be conducted by an additional ED providers. Dictation of this chart was performed using voice recognition software; therefore, there may be some unintended grammatical errors. TRAVEL OUTSIDE OF THE [place] IN LAST 30 DAYS: No - Related Data Allergies/Adverse Reactions: oxycodone Allergy (Verified 06/16/18 09:51) Past Medical History - Past Medical History Cardiac Medical History: Denies: Hx Coronary Artery Disease, Hx Heart Attack, Hx Hypertension Pulmonary Medical History: Reports: Hx Asthma Denies: Hx Bronchitis, Hx COPD, Hx Pneumonia Neurological Medical History: Denies: Hx Cerebrovascular Accident, Hx Seizures Renal/ Medical History: Reports: Hx Kidney Stones, Hx Ovarian Cysts. Denies: Hx Peritoneal Dialysis Musculoskeltal Medical History: Denies Hx Arthritis, Reports Hx Musculoskeletal Deformity, Reports Hx Musculoskeletal Trauma Past Surgical History: Reports: Hx Cholecystectomy, Hx Orthopedic Surgery - C- spine fusion right knee surgery right foot - Immunizations Hx Diphtheria, Pertussis, Tetanus Vaccination: Yes - NOT UP TO DATE History of Influenza Vaccine for 04/2017 - 09/2017 Season: Yes Influenza Administration Date for 04/2017 - 09/2017 Season: 04/11/17 Physical Exam - Vital signs Vitals: Temp Pulse Resp BP Pulse Ox 98.0 F 99 20 126/82 H 99 12/26/18 15:45 12/26/18 15:45 12/26/18 15:45 12/26/18 15:45 12/26/18 15:45 Course - Vital Signs Vital signs: Temp Pulse Resp BP Pulse Ox 98.0 F 99 20 126/82 H 99 12/26/18 15:45 12/26/18 15:45 12/26/18 15:45 12/26/18 15:45 12/26/18 15:45 Doctor's Discharge - Discharge Referrals: [facility] [Primary [facility]] - Follow up as needed
--- NOTE | 2018-12-26 19:29 | RADIOLOGY REPORT (SQ) ---
EXAM DESCRIPTION: CHEST SINGLE VIEW COMPLETED DATE/TIME: 12/26/2018 7:02 pm REASON FOR STUDY: short of breath chest pain COMPARISON: 08/10/2018 EXAM PARAMETERS: NUMBER OF VIEWS: One view. TECHNIQUE: Single frontal radiographic view of the chest acquired. RADIATION DOSE: NA LIMITATIONS: None. FINDINGS: LUNGS AND PLEURA: No opacities, masses or pneumothorax. No pleural effusion. MEDIASTINUM AND HILAR STRUCTURES: No masses. Contour normal. HEART AND VASCULAR STRUCTURES: Heart normal in size. Normal vasculature. BONES: No acute findings. HARDWARE: None in the chest. OTHER: No other significant finding. IMPRESSION: NO ACUTE RADIOGRAPHIC FINDING IN THE CHEST. TECHNICAL DOCUMENTATION: JOB ID: [id number] [employer]- All Rights Reserved Reading location - IP/workstation name: [email or web address]
[2018-12-26 19:45] LABS: ABSOLUTE EOSINOPHILS # (AUTO) 0.2 10^3/uL (0.0-0.6); ABSOLUTE LYMPHOCYTES (AUTO) 2.2 10^3/uL (0.5-4.7); ABSOLUTE MONOCYTES (AUTO) 0.6 10^3/uL (0.1-1.4); ABSOLUTE NEUT (AUTO) 5.2 10^3/uL (1.7-8.2); BASOPHILS % (AUTO) 0.5 % (0-2); EOSINOPHILS % (AUTO) 2.6 % (0-6); HEMATOCRIT 40.6 % (36.0-47.0); HEMOGLOBIN 13.7 g/dL (12.0-15.5); LYMPHOCYTES % (AUTO) 26.5 % (13-45); MEAN CORPUSCULAR HEMOGLOBIN 28.9 pg (27.0-33.4); MEAN CORPUSCULAR HGB CONC 33.7 g/dL (32.0-36.0); MEAN CORPUSCULAR VOLUME 86 fl (80-97); MONOCYTES % (AUTO) 7.5 % (3-13); PLATELET COUNT 346 10^3/uL (150-450); RED BLOOD COUNT 4.73 10^6/uL (3.72-5.28); RED CELL DISTRIBUTION WIDTH 13.1 % (11.5-14.0); SEGMENTED NEUTROPHILS % (AUTO) 62.9 % (42-78); TOTAL CELLS COUNTED % (AUTO) 100 %; WHITE BLOOD COUNT 8.3 10^3/uL (4.0-10.5)
[2018-12-26 19:52] LABS: ALANINE AMINOTRANSFERASE 102 U/L (9-52); ALBUMIN 4.7 g/dL (3.5-5.0); ALKALINE PHOSPHATASE 127 U/L (38-126); ANION GAP 11 (5-19); ASPARTATE AMINO TRANSFERASE 59 U/L (14-36); BILIRUBIN,DIRECT 0.2 mg/dL (0.0-0.4); BILIRUBIN,TOTAL 0.6 mg/dL (0.2-1.3); BLOOD UREA NITROGEN 16 mg/dL (7-20); CALCIUM 10.4 mg/dL (8.4-10.2); CARBON DIOXIDE 25 mmol/L (22-30); CHLORIDE 104 mmol/L (98-107); GLUCOSE 107 mg/dL (75-110); POTASSIUM 4.3 mmol/L (3.6-5.0); SODIUM 140.1 mmol/L (137-145); TOTAL PROTEIN 7.8 g/dL (6.3-8.2)
[2018-12-26 20:05] LABS: CREATINE KINASE MB 0.76 ng/mL (<4.55)
[2018-12-26 20:06] LABS: TROPONIN I < 0.012 ng/mL
[2018-12-26] MEDS ORDERED: IPRATROPIUM/ALBUTEROL 0.5-2.5 MG/3 ML AMPUL NEB ONE (20:19)
[2018-12-26] MEDS ORDERED: METHYLPREDNISOLONE INJ 125 MG/2 ML SDV IV ONE (20:19)
--- NOTE | 2018-12-26 21:28 | ER Document Report ---
ED General - General Chief Complaint: Asthma Exacerbation Stated Complaint: TROUBLE BREATHING Time Seen by Provider: 12/26/18 18:32 Primary Care Provider: ULISSES NDIAYE [Primary Care Provider] - Follow up in 3-5 days Mode of Arrival: Ambulatory Notes: Patient is a 53-year-old female who presents the emergency department with a chief complaint of breath. Her symptoms started on Wednesday and she states that she has been using her albuterol inhaler more often than normal. She states that she feels like she cannot quite catch her breath. She has a history of asthma she also has had surgeries including a cholecystectomy, knee surgery, appendectomy, and this past November she had a colectomy. TRAVEL OUTSIDE OF THE [place] IN LAST 30 DAYS: No - Related Data Allergies/Adverse Reactions: oxycodone Allergy (Verified 06/16/18 09:51) Past Medical History - General Information source: Patient - Social History Smoking Status: Never Smoker Chew tobacco use (# tins/day): No Frequency of alcohol use: None Drug Abuse: None Family History: Reviewed & Not Pertinent Patient has suicidal ideation: No Patient has homicidal ideation: No - Past Medical History Cardiac Medical History: Denies: Hx Coronary Artery Disease, Hx Heart Attack, Hx Hypertension Pulmonary Medical History: Reports: Hx Asthma Denies: Hx Bronchitis, Hx COPD, Hx Pneumonia Neurological Medical History: Denies: Hx Cerebrovascular Accident, Hx Seizures Renal/ Medical History: Reports: Hx Kidney Stones, Hx Ovarian Cysts. Denies: Hx Peritoneal Dialysis Musculoskeletal Medical History: Denies Hx Arthritis, Reports Hx Musculoskeletal Deformity, Reports Hx Musculoskeletal Trauma Past Surgical History: Reports: Hx Cholecystectomy, Hx Orthopedic Surgery - C- spine fusion right knee surgery right foot - Immunizations Hx Diphtheria, Pertussis, Tetanus Vaccination: Yes - NOT UP TO DATE Review of Systems - Review of Systems Notes: REVIEW OF SYSTEMS: CONSTITUTIONAL : Denies recent illness. Denies recent unintentional weight loss. Denies fever, chills, or sweats. EENT: Denies eye, ear, throat, or mouth pain, discharge, or symptoms. Denies nasal or sinus congestion. CARDIOVASCULAR: Denies chest pain. RESPIRATORY: See HPI GASTROINTESTINAL: Denies nausea, vomiting, and diarrhea. Denies abdominal pain. Denies constipation. GENITOURINARY: Denies difficulty urinating, burning, blood in urine, urgency or frequency. MUSCULOSKELETAL: Denies neck and back pain. Denies joint pain or swelling. SKIN: Denies rash, itchiness, or lesions HEMATOLOGIC : Denies easy bruising or bleeding. LYMPHATIC: Denies swollen, painful, enlarged glands. NEUROLOGICAL: Denies no numbness or tingling denies weakness. Denies headache. Denies altered mental status. Denies alteration in speech. PSYCHIATRIC: Denies stress, anxiety, alteration in sleep patterns, or depression. All other systems reviewed and negative. Physical Exam - Vital signs Vitals: Temp Pulse Resp BP Pulse Ox 98.0 F 99 20 126/82 H 99 12/26/18 15:45 12/26/18 15:45 12/26/18 15:45 12/26/18 15:45 12/26/18 15:45 - Notes Notes: PHYSICAL EXAMINATION: GENERAL: Appears well, healthy, well-nourished, no acute distress. HEAD: Normocephalic, atraumatic. EYES: PERRL, conjunctiva normal, all extraocular movements intact, sclera nonicteric ENT: Moist mucous membranes. NECK: Supple, no noticeable swelling, redness, rash. Normal range of motion. LUNGS: Diminished breath sounds bilaterally. No wheezes rales or rhonchi. CARDIOVASCULAR: S1-S2, regular rate, regular rhythm. Radial pulses 2+, normal. ABDOMEN: Normoactive bowel sounds. Soft, nontender, no guarding, no rebound tenderness, and no masses palpated. EXTREMITIES: Normal strength and range of motion, no pitting or edema. No cyanosis. NEUROLOGICAL: Moves all extremities upon command. Strength 5/5 in all extremities. PSYCH: Normal mood, normal affect. SKIN: Warm, dry. No rash, lesions, ulcerations noted. Normal skin turgor. Course - Re-evaluation Re-evalutation: 12/26/18 21:[address] of the chest was negative for any acute pulmonary emboli. Labs are all unremarkable. EKG shows normal sinus rhythm with a rate of 82. I have reevaluated the patient and she has clear breath sounds. She states that she feels better. She will be sent home with prednisone. She states that she has a nebulizer at home. She will follow-up with her primary care provider. Verbal discharge instructions were given to the patient. They verbalized understanding. They are stable for discharge. - Vital Signs Vital signs: Temp Pulse Resp BP Pulse Ox 98.1 F 86 18 143/97 H 98 12/26/18 22:04 12/26/18 22:04 12/26/18 22:04 12/26/18 22:04 12/26/18 22:04 - Laboratory Result Diagrams: 12/26/18 19:09 12/26/18 19:09 Laboratory results interpreted by me: 12/26/18 19:09 Calcium 10.4 H AST 59 H ALT 102 H Alkaline Phosphatase 127 H - EKG Interpretation by Me Additional EKG results interpreted by me: 12/26/18 21:56 Sinus rhythm. Rate 82. MD 156; QRS 88; QT 384; QTc 449. No ST elevations or depressions noted. No acute change from previous EKG dated on August 10, 2018. Discharge - Discharge Clinical Impression: Asthma exacerbation Qualifiers: Asthma severity: moderate Asthma persistence: unspecified Qualified Code(s): J45.901 - Unspecified asthma with (acute) exacerbation Condition: Stable Disposition: HOME, SELF-CARE Additional Instructions: You were seen for an asthma exacerbation. Your symptoms improved with treatment here in the emergency department. However, it is very important that you return to the emergency department immediately if you began to have worsening difficulty breathing that does not respond to your normal home nebulizers. You are also being sent home on a five-day course of steroids that you should start taking tomorrow. Please also follow closely with your primary care physician. you should also return to emergency department if you develop fever greater than 101, persistent cough, persistent vomiting, pass out, or any other symptoms that are concerning to you. Prescriptions: Prednisone [Deltasone 20 mg Tablet] 3 tab PO DAILY 5 Days tablet Referrals: [facility] [Primary Care Provider] - Follow up in 3-5 days
--- NOTE | 2018-12-26 21:33 | RADIOLOGY REPORT (SQ) ---
EXAM DESCRIPTION: CT CHEST ANGIOGRAPHY WITHOUT THEN WITH IV CONTRAST COMPLETED DATE/TME: 12/26/2018 18:34 CLINICAL HISTORY: 53 years, Female, chest tightness, recent surgery low grade fever COMPARISON: None. TECHNIQUE: Axial images through the chest were performed after the administration of intravenous contrast using a pulmonary embolus protocol. MIPS were performed. This exam was performed according to our departmental dose-optimization program which includes use of Automated Exposure Control, adjustment of the mA and/or kV according to patient size and/or use of iterative reconstruction technique. FINDINGS: No pulmonary embolus is identified in the main pulmonary artery. The distal branches are not opacified with contrast which prevents evaluation.. Normal caliber aorta without dissection. No pericardial effusion. No pleural effusion. No focal lung consolidation. No pneumothorax. Patent central airway. Soft tissues are unremarkable. No acute osseous findings. No acute abnormality within the visualized upper abdomen. IMPRESSION: No central pulmonary embolus. Nondiagnostic evaluation for segmental pulmonary emboli due to poor contrast bolus timing.
[2018-12-26 22:06] VITALS: BP 143/97
--- NOTE | 2018-12-26 23:26 | EKG REPORT ---
SEVERITY:- NORMAL ECG - SINUS RHYTHM : Confirmed by: Radha Del Real MD 26-Dec-2018 23:25:48
== END 2018-12-26 22:06 | disposition home or self-care (01) ==
LOC: ER 15:02
DX: J45.901 Unspecified asthma with (acute) exacerbation (principal)
CPT/HCPCS: 93005; 94640; 99285; 96374; 36415; 87040; 82553; 85025; 80053; 84484; 71045; 71275; 93010; J2930; J7620

== ENCOUNTER → 2019-09-13 | Outpatient (CLI) | payer OTHER ==
--- NOTE | 2019-09-13 13:32 | WOMENS IMAGING REPORT ---
EXAM DESCRIPTION: 3D SCREENING MAMMO BILAT COMPLETED DATE/TIME: 09/13/2019 9:47 am REASON FOR STUDY: Z12.39 SCREENING MAMMO Z12.31 ENCNTR SCREEN MAMMOGRAM FOR MALIGNANT NEOPLASM OF B RE COMPARISON: Multiple since 2010 EXAM PARAMETERS: Views: Standard craniocaudal and mediolateral oblique views of each breast recorded using digital acquisition and breast tomosynthesis. Read with the assistance of CAD. .[facility] - [id number] Version 9.2 LIMITATIONS: None. FINDINGS: No suspicious masses, suspicious calcifications or architectural distortion. No areas of c oncern. IMPRESSION: NEGATIVE MAMMOGRAM. BIRADS 1. BREAST DENSITY: b. There are scattered areas of fibroglandular density. BIRAD: ASSESSMENT: 1 NEGATIVE RECOMMENDATION: ROUTINE SCREENING Please continue yearly bilateral screening mammography/tomosynthesis in September 2020 COMMENT: The patient has been notified of the results by letter per [place] requirements. Additional no tification policies are in place for contacting patient with suspicious or incomplete findings. Quality ID #[id number]: The [employer] recommends an annual screening mammogram for women aged 40 years or over. This facility utilizes a reminder system to ensure that all patients receive reminder letters, and/or direct phone calls for appointments. This includes reminders for routine scr eening mammograms, diagnostic mammograms, or other Breast Imaging Interventions when appropriate. Th is patient will be placed in the appropriate reminder system. TECHNICAL DOCUMENTATION: FINDING NUMBER: (1) ASSESSMENT: (1) JOB ID: [id number] 2010 [employer]- All Rights Reserved Reading location - IP/workstation name: [email or web address]
== END ==
LOC: WI 09:15
PROVIDERS: ATTEND Physician Assistant Medical
DX: Z12.31 Encounter for screening mammogram for malignant neoplasm of breast (principal)
CPT/HCPCS: 77063; 77067

== ENCOUNTER 2020-07-19 14:19 | Emergency (ER) | payer OTHER ==
[2020-07-19] MEDS ORDERED: BENZONATATE 100 MG CAPSULE PO ONE (14:32)
[2020-07-19] MEDS ORDERED: DEXAMETHASONE SOD PHOS INJ 10 MG/1 ML VIAL IM ONE (14:32)
[2020-07-19 14:56] LABS: ABSOLUTE BASOPHILS # (AUTO) 0.1 10^3/uL (0.0-0.2); ABSOLUTE LYMPHOCYTES (AUTO) 1.3 10^3/uL (0.5-4.7); ABSOLUTE MONOCYTES (AUTO) 0.3 10^3/uL (0.1-1.4); ABSOLUTE NEUT (AUTO) 9.3 10^3/uL (1.7-8.2); BASOPHILS % (AUTO) 0.8 % (0-2); EOSINOPHILS % (AUTO) 0.2 % (0-6); HEMATOCRIT 42.5 % (36.0-47.0); HEMOGLOBIN 14.5 g/dL (12.0-15.5); LYMPHOCYTES % (AUTO) 11.9 % (13-45); MEAN CORPUSCULAR HGB CONC 34.1 g/dL (32.0-36.0); MEAN CORPUSCULAR VOLUME 85 fl (80-97); MONOCYTES % (AUTO) 2.8 % (3-13); PLATELET COUNT 326 10^3/uL (150-450); RED CELL DISTRIBUTION WIDTH 13.3 % (11.5-14.0); SEGMENTED NEUTROPHILS % (AUTO) 84.3 % (42-78); TOTAL CELLS COUNTED % (AUTO) 100 %
--- NOTE | 2020-07-19 15:02 | RADIOLOGY REPORT (SQ) ---
EXAM DESCRIPTION: CHEST SINGLE VIEW IMAGES COMPLETED DATE/TIME: 07/19/2020 2:48 pm REASON FOR STUDY: sob/covid exposure COMPARISON: 12/26/2018 EXAM PARAMETERS: NUMBER OF VIEWS: One view. TECHNIQUE: Single frontal radiographic view of the chest acquired. RADIATION DOSE: NA LIMITATIONS: None. FINDINGS: LUNGS AND PLEURA: Low lung volumes limits the examination. No acute pulmonary consolidat ion. No pneumothorax or pleural effusion. MEDIASTINUM AND HILAR STRUCTURES: No masses. Contour normal. HEART AND VASCULAR STRUCTURES: Heart normal in size. Normal vasculature. BONES: No acute findings. HARDWARE: None in the chest. OTHER: No other significant finding. IMPRESSION: 1. Low lung volumes limits examination. No acute findings. TECHNICAL DOCUMENTATION: JOB ID: [id number] 2010 [employer]- All Rights Reserved Reading location - IP/workstation name: [email or web address]
[2020-07-19 15:16] LABS: ALBUMIN 4.5 g/dL (3.5-5.0); ALKALINE PHOSPHATASE 135 U/L (38-126); ANION GAP 10 (5-19); ASPARTATE AMINO TRANSFERASE 40 U/L (14-36); BILIRUBIN,DIRECT 0.2 mg/dL (0.0-0.4); BILIRUBIN,TOTAL 0.5 mg/dL (0.2-1.3); BLOOD UREA NITROGEN 17 mg/dL (7-20); CALCIUM 9.8 mg/dL (8.4-10.2); CARBON DIOXIDE 26 mmol/L (22-30); CHLORIDE 105 mmol/L (98-107); GLUCOSE 179 mg/dL (75-110); POTASSIUM 4.5 mmol/L (3.6-5.0); TOTAL PROTEIN 7.3 g/dL (6.3-8.2)
--- NOTE | 2020-07-19 17:50 | ER Document Report ---
HPI - HPI Time Seen by Provider: 07/19/20 14:26 Pain Level: 3 Notes: 54-year-old female patient presents emergency department chief complaint of cough, shortness of breath, headache, body aches and lightheadedness. Patient reports symptoms started yesterday. She states her boss tested positive for Covid a few days ago. She reports that she did have close contact with him in the office. She went to the [facility] this morning and had a Covid test done but due to her shortness of breath they wanted her evaluated in the emergency department. She does have a history of asthma. - ROS Systems Reviewed and Negative: Yes All other systems reviewed and negative - see hpi - NEURO Neurology: REPORTS: Headache - RESPIRATORY Respiratory: REPORTS: Trouble Breathing, Coughing - REPRODUCTIVE Reproductive: DENIES: : Past Medical History - General Information source: Patient - Social History Smoking Status: Never Smoker Chew tobacco use (# tins/day): No Frequency of alcohol use: Occasional Drug Abuse: None Family History: Reviewed & Not Pertinent Pulmonary Medical History: Reports: Hx Asthma Neurological Medical History: Denies: Hx Cerebrovascular Accident, Hx Seizures Renal/ Medical History: Reports: Hx Kidney Stones, Hx Ovarian Cysts. Denies: Hx Peritoneal Dialysis Musculoskeletal Medical History: Denies Hx Arthritis, Reports Hx Musculoskeletal Deformity, Reports Hx Musculoskeletal Trauma Past Surgical History: Reports: Hx Abdominal Surgery - cancerous cells large i ntestine, Hx Appendectomy, Hx Cholecystectomy, Hx Orthopedic Surgery - C-spine fusion right knee surgery right foot - Immunizations Hx Diphtheria, Pertussis, Tetanus Vaccination: Yes - NOT UP TO DATE Vertical Provider Document - CONSTITUTIONAL Notes: PHYSICAL EXAMINATION: GENERAL: Well-appearing, well-nourished and in no acute distress. HEAD: Atraumatic, normocephalic. EYES: Pupils equal round and reactive to light, extraocular movements intact, conjunctiva are normal. ENT: Nares patent, oropharynx clear without exudates. Moist mucous membranes. NECK: Normal range of motion, supple without lymphadenopathy LUNGS: Breath sounds clear to auscultation bilaterally and equal. No wheezes rales or rhonchi. HEART: Regular rate and rhythm without murmurs ABDOMEN: Soft, nontender, nondistended abdomen. No guarding, no rebound. No masses appreciated. Female : deferred Musculoskeletal: Normal range of motion, no pitting or edema. No cyanosis. NEUROLOGICAL: Cranial nerves grossly intact. Normal speech, normal gait. Normal sensory, motor exams PSYCH: Normal mood, normal affect. SKIN: Warm, Dry, normal turgor, no rashes or lesions noted. - INFECTION CONTROL TRAVEL OUTSIDE OF THE [place] IN LAST 30 DAYS: No Course - Vital Signs Vital signs: Temp Pulse Resp BP Pulse Ox 98.5 F 104 H 22 H 146/93 H 98 07/19/20 14:25 07/19/20 14:25 07/19/20 14:25 07/19/20 14:25 07/19/20 14:25 - Laboratory Results Result Diagrams: 07/19/20 14:50 07/19/20 14:50 Laboratory Results Interpreted: 07/19/20 07/19/20 14:50 14:50 WBC 11.0 H Lymph % (Auto) 11.9 L [place] % (Auto) 2.8 L Absolute Neuts (auto) 9.3 H Seg Neutrophils % 84.3 H Glucose 179 H AST 40 H ALT 46 H Alkaline Phosphatase 135 H Critical Laboratory Results Reviewed: No Critical Results - Radiology Results Critical Radiology Results Reviewed: No Critical Results Discharge - Discharge Clinical Impression: Viral illness, Shortness of breath Condition: Stable Disposition: HOME, SELF-CARE Additional Instructions: Please do not take your prednisone for the next 3 days. Push fluids. Get plenty of rest. Tylenol or Motrin for fever and body aches. Good handwashing and stay away from others. Self quarantine until you have received your COVID-19 results. Return to the emergency department with any new or worsening symptoms such as difficulty breathing, or any other worsening symptoms. Prescriptions: Benzonatate [Tessalon Perles 100 mg Capsule] 1 - 2 tab PO Q8HP PRN #30 capsule PRN Reason: Forms: Return to Work
[2020-07-19 18:09] VITALS: BP 143/86
== END 2020-07-19 18:09 | disposition home or self-care (01) ==
LOC: ER 14:19
DX: B34.9 Viral infection, unspecified (principal); J45.909 Unspecified asthma, uncomplicated; R05 Cough; R42 Dizziness and giddiness; R06.02 Shortness of breath; Z20.822 Contact with and (suspected) exposure to COVID-19
CPT/HCPCS: 99284; 96372; 36415; 85025; 87635; 80053; 71045; J1100; C9803